=== PATIENT | female | born 1990 | race Caucasian/White ===

== ENCOUNTER 2016-08-22 13:10 | Outpatient (CLI) | payer MEDICAID ==
[~2016-08-22] VITALS: Ht 157.5 cm; Wt 83.8 kg
[2016-08-22 13:51] VITALS: BP 106/60; PULSE 81; RESP 18; Ht 157.5 cm; Wt 83.8 kg
--- NOTE | 2016-08-22 14:42 | RADRPT ---
PROCEDURE: OB ultrasound for biophysical profile CLINICAL INDICATION: Cholestasis TECHNIQUE: Multiple sonographic images of the pelvis were obtained. Transabdominal view of the gr avid uterus are available for review. The images were reviewed on a PACS workstation. COMPARISON: None available FINDINGS: breathing movement = 2/2 tone = 2/2 motion = 2/2 CHANG = 2/2 CHANG = 8.7 cm, consistent with borderline oligohydramnios. Single live intrauterine with cardiac activity. heart rate equals 143 beats p er minute. Presentation is cephalic. The placenta is anterior, grade II. IMPRESSION: 1. Single viable intrauterine gestation. 2. Biophysical profile = 8/8. 3. CHANG = 8.7 cm. RPTAT: KK .Bhaskar Hansen MD, MD Date Time Electronically viewed and signed by .Bhaskar Hansen MD, MD on 08/22/2016 14:42 .B/
[2016-08-22] MEDS ORDERED: LACTATED RINGER'S 1,000 ML IV SCH (14:50)
--- NOTE | 2016-08-22 14:58 | QN ---
Documentation Comment iup 34 weeks cholestatis vss exam wnl us wnl a/p iup 34 weeks cholestatsis dc metter JOLIE WHITE MD Aug 22, 2016 14:58
[2016-08-22] MEDS ORDERED: TERBUTALINE 1 MG/ML INJ SC PRN (15:30)
[2016-08-22 15:34] LABS: ALBUMIN 3.1 g/dl (3.3-4.9); ALBUMIN/GLOBULIN RATIO 0.88; BILIRUBIN,INDIRECT 0.1 mg/dl (0-1.1); BILIRUBIN,TOTAL 0.1 mg/dl (0.2-1.3); CALCIUM 8.9 mg/dl (8.4-10.2); CREATININE 0.54 mg/dl (0.44-1.00); POTASSIUM 3.6 mmol/L (3.5-5.1); TOTAL PROTEIN 6.6 g/dl (6.1-8.1)
[2016-08-22] MEDS ORDERED: FERR325C PO (16:17)
[2016-08-22] MEDS ORDERED: PRENAT PO (16:17)
[2016-08-22] MEDS ORDERED: URSO300C21 PO (16:19)
[2016-08-22 16:21] LABS: ADD SCAN DIFF NO
[2016-08-22 16:25] LABS: BASOPHILS % 0.3 % (0.0-2.0); EOSINOPHILS # 0.1 10^3/ul (0.0-0.5); EOSINOPHILS % 0.9 % (0.0-7.0); HEMATOCRIT 32.3 % (37.0-47.0); HEMOGLOBIN 9.9 g/dl (12.0-16.0); LYMPHOCYTES # 1.3 10^3/ul (0.8-2.9); LYMPHOCYTES % 17.5 % (15.0-51.0); MEAN CORPUSCULAR HEMOGLOBIN 22.1 pg (29.0-33.0); MEAN CORPUSCULAR HGB CONC 30.7 g/dl (32.0-37.0); MEAN CORPUSCULAR VOLUME 72.1 fl (82.0-101.0); MEAN PLATELET VOLUME 11.8 fl (7.4-10.4); MONOCYTE # 0.5 10^3/ul (0.3-0.9); MONOCYTES % 6.9 % (0.0-11.0); NEUTROPHIL # 5.5 10^3/ul (1.6-7.5); NEUTROPHILS % 73.9 % (39.0-77.0); PLATELET COUNT 244 10^3/UL (140-415); RED BLOOD COUNT 4.48 10^6/ul (4.20-5.40); RED CELL DISTRIBUTION WIDTH 20.8 % (11.5-14.5); WHITE BLOOD COUNT 7.5 10^3/ul (4.8-10.8)
--- NOTE | 2016-08-22 18:04 | TRIAGE ---
OB Triage Datetime Report Generated by CPN: 08/22/2016 18:03 Datetime: 08/22/2016 17:08 Assessment Type: Triage Maternal Assessment Level of Consciousness: Fully Conscious DTR's/Clonus: DTRs 2+; No Clonus Headache: Denies Blurred Vision: No Respiratory Effort: Unlabored; Regular Rhythm; Equal Expansion Breath Sounds, Left: Clear and Equal Breath Sounds, Right: Clear and Equal Nausea/Vomiting: Denies RUQ Epigastric Pain: Denies Facial Edema: None Fall Risk Assessment History of Falling: (0) No Secondary Diagnosis: (0) No Ambulatory Aid: (0) Bedrest/Nurse Assist IV Therapy: (0) No Gait: (0) Normal/Bedrest/Immobile Mental Status: (0) Oriented to Own Ability Fall Score: 0 Fall Risk Score Definition: No Risk: No action required Datetime: 08/22/2016 16:08 Labor Evaluation Frequency: 0 Monitor Mode: External Duration (sec)2399: 0 Contraction Comments: PT DENIES UC'S AT THIS TIME Heart Rate FHR Baseline Rate: 145 Monitor Mode: External US Variability: Moderate 6-25 bpm Accelerations: 15X15 Decelerations: None Category: Category I Pain Assessment Pain Scale: 0 Pain Presence: Intermittent Pain Type: Contraction Pain Location: Abdomen; Back Pain Goal: 0 Pain Relief Measures: Comfort Measures Pain Assessment Comments: PT REPORTS NO PAIN AND FEELING BETTER Datetime: 08/22/2016 15:30 Labor Evaluation Frequency: IRREG Monitor Mode: External Duration (sec)2399: 50-90 Quality: Mild Pattern: Normal: <= 5 Contractions in 10 Minutes Resting Tone [place]: Relaxed Heart Rate FHR Baseline Rate: 145 Monitor Mode: External US Variability: Moderate 6-25 bpm Accelerations: 15X15 Decelerations: Variable Category: Category II Comments: ISOLATED VARIABLE NOTED AT THIS TIME , PT SAT UP Datetime: 08/22/2016 15:01 Labor Evaluation Frequency: IRREG Monitor Mode: External Duration (sec)2399: 50-80 Quality: Mild Pattern: Normal: <= 5 Contractions in 10 Minutes Resting Tone [place]: Relaxed Heart Rate FHR Baseline Rate: 145 Monitor Mode: External US Variability: Moderate 6-25 bpm Accelerations: 15X15 Decelerations: None Category: Category I Comments: NST REACTIVE FOR GESTATIONAL AGE Datetime: 08/22/2016 14:17 Labor Evaluation Frequency: 0 Monitor Mode: External Duration (sec)2399: 0 Contraction Comments: no uc's noted pt denies uc's at this time Heart Rate FHR Baseline Rate: 135 Monitor Mode: External US Variability: Moderate 6-25 bpm Accelerations: 15X15 Decelerations: None Category: Category I Datetime: 08/22/2016 14:00 Time of Arrival: 08/22/2016 12:54 EGA: 34.1 Arrived By: Ambulatory Arrived From: Home Chief Complaint: f/u for cholestatsis Movement: Present Contractions: Denies/Absent Rupture of Membranes: Denies Vaginal Bleeding: None Vaginal Discharge: Denies Recent Sexual Intercouse: Denies Abdominal Trauma: Not Applicable Patient Complaints: None Time Provider Notified: 08/22/2016 14:55 Provider Notified: SHAMSIAN Initial Plan: bpp and nst Datetime: 08/22/2016 13:30 Stage of : Recovery Maternal Assessment Level of Consciousness: Fully Conscious DTR's/Clonus: DTRs 2+; No Clonus Headache: Denies Blurred Vision: No Respiratory Effort: Unlabored; Regular Rhythm; Equal Expansion Breath Sounds, Left: Clear and Equal Breath Sounds, Right: Clear and Equal Nausea/Vomiting: Denies RUQ Epigastric Pain: Denies Lower Extremities Edema: None Degree: None Upper Extremities Edema: None Degree: None Facial Edema: None Temperature Route: Axillary Fall Risk Assessment History of Falling: (0) No Secondary Diagnosis: (0) No Ambulatory Aid: (0) Bedrest/Nurse Assist IV Therapy: (0) No Gait: (0) Normal/Bedrest/Immobile Mental Status: (0) Oriented to Own Ability Fall Score: 0 Fall Risk Score Definition: No Risk: No action required
== END 2016-08-22 16:26 | disposition home or self-care (01) ==
LOC: OBT 13:10 → EDBD 13:10 → L-D 13:10 → OBT 16:26
PROVIDERS: ATTEND Obstetrics & Gynecology
DX: O26.613 Liver and biliary tract disorders in pregnancy, third trimester (principal); K83.1 Obstruction of bile duct; Z3A.34 34 weeks gestation of pregnancy
CPT/HCPCS: 36415; 76818; 80053; 85025; 96360; 96372; J3105; Z7500; G0463

== ENCOUNTER 2016-08-24 09:35 | Outpatient (CLI) | payer MEDICAID ==
[~2016-08-24] VITALS: Ht 165.1 cm; Wt 84.4 kg
[~2016-08-24 09:35] MED LIST: FERR325C PO; PRENAT PO; URSO300C21 PO
[2016-08-24 10:25] VITALS: Ht 165.1 cm; Wt 84.4 kg
[2016-08-24 10:26] VITALS: BP 105/65; PULSE 87; RESP 18
--- NOTE | 2016-08-24 10:56 | RADRPT ---
PROCEDURE: OB ultrasound for biophysical profile CLINICAL INDICATION: Cholestasis. TECHNIQUE: Multiple sonographic images of the pelvis were obtained. Transabdominal view of the gr avid uterus are available for review. The images were reviewed on a PACS workstation. COMPARISON: 08/22/2016 FINDINGS: breathing movement = 2/2 tone = 2/2 motion = 2/2 Quantitative amniotic fluid volume = 2/2 CHANG = 13.4 cm Single live intrauterine with cardiac activity at 130 8 beats per minute. There is a anterior placenta without previa. IMPRESSION: 1. Single living intrauterine gestation in cephalic position. 2. Biophysical profile = 09/13. 3. CHANG = 13.4 cm. RPTAT: AACC Physician Reji Date Time Electronically viewed and signed by Physician Reji on 08/24/2016 10:55 /
--- NOTE | 2016-08-24 12:17 | PN ---
Triage Information Date/Time August 24, 2016 Weeks of Gestation 34 weeks and 3 days : 3 Para: 1 Diabetes: none Additional information 26-year-old with IUP at 34 weeks and 3 days with history of 1 and cholecystokinin current . she has had care with [facility]. She was a started on ursodiol 300 mg p.o. 3 times daily. She is here today for NST and/BPP. Denies any vaginal bleeding, uterine contractions or decreased movement. Reports to still moderate body itching. Takes Benadryl as needed. She is also taking ursodiol regularly [address] [facility] reviewed. Reported bile acids as well as LFTs were elevated.Per patient she was plan to see perinatologist with the planning for delivery time. Objective Vital Signs Date Time Temp Pulse Resp B/P Pulse Ox O2 Delivery O2 Flow Rate FiO2 08/24/16 10:26 98.4 87 18 105/65 98 Room Air Heart Rate: 120's Contractions: None Exam General appearance: Alert and oriented 4. Patient does not appear to be in any acute distress. Abdomen: Soft, gravid, nontender, fundal height consistent with gestational age. NST: Category 1 BPP: 8/8 ROCEDURE: OB ultrasound for biophysical profile CLINICAL INDICATION: Cholestasis. TECHNIQUE: Multiple sonographic images of the pelvis were obtained. Transabdominal view of the gravid uterus are available for review. The images were reviewed on a PACS workstation. COMPARISON: 08/22/2016 FINDINGS: breathing movement = 2/2 tone = 2/2 motion = 2/2 Quantitative amniotic fluid volume = 2/2 CHANG = 13.4 cm Single live intrauterine with cardiac activity at 130 8 beats per minute. There is a anterior placenta without previa. IMPRESSION: 1. Single living intrauterine gestation in cephalic position. 2. Biophysical profile = 8. 3. CHANG = 13.4 cm. Results/Medications Medications Current Medications Betamethasone Acet/Betameth SodPhos (Celestone Soluspan) 12 mg ONCE ONCE IM ; Start 08/24/16 at 12:30; Stop 08/24/16 at 12:31 Assessment/Plan IUP at 34 weeks and 3 days History of cholestasis of based on clinical picture and elevated bile acids and LFTs, para records from notes from [facility] NST: Category 1 BPP: 09/13 Discussed with the patient regarding steroid due to likely delivery prior to 37 weeks Received first dose of steroid today Return to clinic tomorrow for the second shot of steroid after 24 hours as well as anesthesia Will have LFT drawn tomorrow, to compare for trend Advised the patient to discuss with her OB attending tomorrow at her visit about appointment to see perinatologist for timing of delivery kiln remover used. Patient verbalized understanding all above discussion Strict labor precaution and kick count discussed Continue ursodiol 3 times daily Continue Benadryl as needed TAYE CADET MD Aug 24, 2016 12:17
--- NOTE | 2016-08-24 12:18 | TRIAGE ---
OB Triage Datetime Report Generated by CPN: 08/24/2016 12:18 Datetime: 08/24/2016 10:21 Assessment Type: Triage Maternal Assessment Level of Consciousness: Fully Conscious DTR's/Clonus: DTRs 2+; No Clonus Headache: Denies Blurred Vision: No Respiratory Effort: Unlabored; Regular Rhythm; Equal Expansion Breath Sounds, Left: Clear and Equal Breath Sounds, Right: Clear and Equal Nausea/Vomiting: Denies RUQ Epigastric Pain: Denies Lower Extremities Edema: None Degree: None Upper Extremities Edema: None Degree: None Facial Edema: None Fall Risk Assessment History of Falling: (0) No Secondary Diagnosis: (0) No Ambulatory Aid: (0) Bedrest/Nurse Assist IV Therapy: (0) No Gait: (0) Normal/Bedrest/Immobile Mental Status: (0) Oriented to Own Ability Fall Score: 0 Fall Risk Score Definition: No Risk: No action required Datetime: 08/24/2016 10:19 Time of Arrival: 08/24/2016 09:30 EGA: 34.3 Arrived By: Ambulatory Arrived From: Home Chief Complaint: pt here for NST/BPP FOR CHOLESTASIS Movement: Present Contractions: Denies/Absent Rupture of Membranes: Denies Vaginal Discharge: Denies Recent Sexual Intercouse: Denies Abdominal Trauma: Not Applicable Patient Complaints: None Time Provider Notified: 08/24/2016 09:30 Provider Notified: HAMZAH Initial Plan: NST/BPP/BETAMETHASONE Datetime: 08/24/2016 09:58 Labor Evaluation Monitor Mode: External Heart Rate Monitor Mode: External US Datetime: 08/22/2016 17:08 Fall Score: 0 Fall Risk Score Definition: No Risk: No action required Datetime: 08/22/2016 14:00 EGA: 34.1 Datetime: 08/22/2016 13:30 Fall Score: 0 Fall Risk Score Definition: No Risk: No action required
[2016-08-24] MEDS ORDERED: BETAMET NA PHOS/AC(6 MG/ML) 5ML INJ IM ONE (12:30)
== END 2016-08-24 12:25 | disposition home or self-care (01) ==
LOC: L-D 09:35 → OBT 09:35 → L-D 09:37 → OBT 12:25
PROVIDERS: ATTEND Obstetrics & Gynecology
DX: O26.613 Liver and biliary tract disorders in pregnancy, third trimester (principal); K83.1 Obstruction of bile duct; O34.219 Maternal care for unspecified type scar from previous cesarean delivery; Z3A.34 34 weeks gestation of pregnancy; O26.893 Other specified pregnancy related conditions, third trimester; L29.9 Pruritus, unspecified
CPT/HCPCS: 76818; J0702; Z7500; G0463

== ENCOUNTER 2016-08-25 12:11 | Outpatient (CLI) | payer MEDICAID ==
[~2016-08-25] VITALS: Ht 165.1 cm; Wt 84.7 kg
[2016-08-25 12:34] VITALS: Ht 165.1 cm; Wt 84.7 kg
[2016-08-25 12:35] VITALS: BP 103/55; PULSE 87; RESP 18
[2016-08-25] MEDS ORDERED: BETAMET NA PHOS/AC(6 MG/ML) 5ML INJ IM SCH (13:00)
[2016-08-25 13:28] LABS: ADD SCAN DIFF NO
[2016-08-25 13:34] LABS: BASOPHILS % 0.1 % (0.0-2.0); EOSINOPHILS % 0.4 % (0.0-7.0); HEMATOCRIT 29.9 % (37.0-47.0); HEMOGLOBIN 9.3 g/dl (12.0-16.0); LYMPHOCYTES # 1.3 10^3/ul (0.8-2.9); MEAN CORPUSCULAR HEMOGLOBIN 22.2 pg (29.0-33.0); MEAN CORPUSCULAR HGB CONC 31.1 g/dl (32.0-37.0); MEAN CORPUSCULAR VOLUME 71.5 fl (82.0-101.0); MEAN PLATELET VOLUME 10.8 fl (7.4-10.4); MONOCYTE # 0.9 10^3/ul (0.3-0.9); MONOCYTES % 8.2 % (0.0-11.0); NEUTROPHIL # 9.1 10^3/ul (1.6-7.5); NEUTROPHILS % 79.7 % (39.0-77.0); PLATELET COUNT 254 10^3/UL (140-415); RED BLOOD COUNT 4.18 10^6/ul (4.20-5.40); RED CELL DISTRIBUTION WIDTH 20.8 % (11.5-14.5); WHITE BLOOD COUNT 11.4 10^3/ul (4.8-10.8)
[2016-08-25 13:47] LABS: INR 0.94; PROTIME 12.6 Sec (12.2-14.2)
[2016-08-25 13:48] LABS: PARTIAL THROMBOPLASTIN TIME 27.4 Sec (25.0-35.0)
[2016-08-25 13:51] LABS: ALBUMIN 3.2 g/dl (3.3-4.9); ALBUMIN/GLOBULIN RATIO 0.88; BILIRUBIN,INDIRECT 0.1 mg/dl (0-1.1); BILIRUBIN,TOTAL 0.1 mg/dl (0.2-1.3); CALCIUM 8.8 mg/dl (8.4-10.2); CREATININE 0.5 mg/dl (0.44-1.00); POTASSIUM 3.2 mmol/L (3.5-5.1); TOTAL PROTEIN 6.8 g/dl (6.1-8.1); URIC ACID 3.4 mg/dl (3.1-7.9)
[2016-08-25 14:03] LABS: ADD UMIC YES; UR ASCORBIC ACID NEGATIVE (NEGATIVE); UR BACTERIA FEW /HPF (NONE SEEN); UR BILIRUBIN (Dip) NEGATIVE (NEGATIVE); UR BLOOD (Dip) NEGATIVE (NEGATIVE); UR CLARITY SLIGHTLY CLOUDY (CLEAR); UR COLOR YELLOW (YELLOW); UR GLUCOSE (Dip) 2+ mg/dL (NEGATIVE); UR KETONES (Dip) NEGATIVE (NEGATIVE); UR LEUKOCYTE ESTERASE (Dip) TRACE Leu/ul (NEGATIVE); UR MUCUS FEW /HPF (NONE SEEN); UR NITRITE (Dip) NEGATIVE (NEGATIVE); UR NONSQUAMOUS EPITHELIAL CELL 3 /HPF (NONE SEEN); UR RBC 1 /HPF (0-5); UR SPECIFIC GRAVITY (Dip) 1.023 (1.003-1.030); UR SQUAMOUS EPITHELIAL CELL MANY /HPF (FEW); UR TOTAL PROTEIN (Dip) 1+ mg/dl (NEGATIVE); UR UROBILINOGEN (Dip) 1+ mg/dL (NEGATIVE)
--- NOTE | 2016-08-25 14:20 | TRIAGE ---
OB Triage Datetime Report Generated by CPN: 08/25/2016 14:19 Datetime: 08/25/2016 13:56 Stage of : OB Triage Datetime: 08/25/2016 13:02 Frequency: occ Quality: Mild Pattern: Normal: <= 5 Contractions in 10 Minutes Resting Tone [place]: Relaxed FHR Baseline Rate: 130 Monitor Mode: External US FHR Baseline Changes: No Baseline Change Variability: Moderate 6-25 bpm Accelerations: 15X15 Decelerations: None Category: Category I Datetime: 08/25/2016 13:00 Comments: NST reactive, active movements noted Datetime: 08/25/2016 12:43 Stage of : OB Triage Level of Consciousness: Fully Conscious DTR's/Clonus: DTRs 2+; No Clonus Headache: Denies Blurred Vision: No Respiratory Effort: Unlabored; Regular Rhythm; Equal Expansion Breath Sounds, Left: Clear and Equal Breath Sounds, Right: Clear and Equal Nausea/Vomiting: Denies RUQ Epigastric Pain: Denies Lower Extremities Edema: None Degree: None Upper Extremities Edema: None Degree: None Facial Edema: None Temperature Route: Axillary History of Falling: (0) No Secondary Diagnosis: (0) No Ambulatory Aid: (0) Bedrest/Nurse Assist IV Therapy: (0) No Gait: (0) Normal/Bedrest/Immobile Mental Status: (0) Oriented to Own Ability Fall Score: 0 Fall Risk Score Definition: No Risk: No action required Frequency: pt denies feeling contractions Monitor Mode: External FHR Baseline Rate: 130 Monitor Mode: External US Pain Scale: 0 Pain Presence: None/Denies Pain Type: N/A Datetime: 08/25/2016 12:41 Time of Arrival: 08/25/2016 12:41 EGA: 34.4 Arrived By: Ambulatory Arrived From: Home Chief Complaint: come in for 2nd dose of betamethasone shot and repeat of blood work Movement: Present Contractions: Occasional Rupture of Membranes: Denies Vaginal Bleeding: None Vaginal Discharge: Denies Recent Sexual Intercouse: Denies Abdominal Trauma: Not Applicable Patient Complaints: None Time Provider Notified: 08/25/2016 12:30 Provider Notified: Dr burgess Initial Plan: efm/ im shot/ lab draw Datetime: 08/24/2016 11:30 Stage of : OB Triage Level of Consciousness: Fully Conscious Frequency: NONE Monitor Mode: External Resting Tone [place]: Relaxed FHR Baseline Rate: 135 Monitor Mode: External US Variability: Moderate 6-25 bpm Accelerations: 15X15 Decelerations: None Category: Category I Pain Scale: 0 Pain Goal: 3 Membrane Status: Intact Vaginal Bleeding: None Datetime: 08/24/2016 10:21 Fall Score: 0 Fall Risk Score Definition: No Risk: No action required Datetime: 08/24/2016 10:19 EGA: 34.3
--- NOTE | 2016-08-25 15:34 | CONS ---
Date/Time of Note Date/Time of Note DATE: 08/25/16 TIME: 15:28 Consultation Date/Type/Reason Admit Date/Time August 25, 2016 OB triage consult Reason for Consultation This patient is a 26 years old 3 para 1 1 with estimated date of confinement of September 12, 2016 which makes her 34 weeks and 4 days. she developed cholestasis of the and was placed on Actigall 300 mg 3 times a day she had a betamethasone injection 24 hours ago and will have another one today in anticipation of early delivery On examination she is a well-developed well-nourished woman . near term . her general vital signs are basically normal with blood pressure of 103/55, and pulse rate of 87, temperature 97.5. Laboratory Tests Test 08/25/16 13:02 08/25/16 13:10 White Blood Count 11.410^3/ul Red Blood Count 4.1810^6/ul Hemoglobin 9.3g/dl Hematocrit 29.9% Mean Corpuscular Volume 71.5fl Mean Corpuscular Hemoglobin 22.2pg Mean Corpuscular Hemoglobin Concent 31.1g/dl Red Cell Distribution Width 20.8% Platelet Count 68491^3/UL Mean Platelet Volume 10.8fl Neutrophils % 79.7% Lymphocytes % 11.0% Monocytes % 8.2% Eosinophils % 0.4% Basophils % 0.1% Neutrophils # 9.110^3/ul Lymphocytes # 1.310^3/ul Monocytes # 0.910^3/ul Eosinophils # 0.010^3/ul Basophils # 0.010^3/ul Nucleated Red Blood Cells # 0.010^3/ul Prothrombin Time 12.6Sec Prothrombin Time Ratio 1.0 INR International Normalized Ratio 0.94 Activated Partial Thromboplast Time 27.4Sec Fibrinogen 616.0mg/dl Sodium Level 140mmol/L Potassium Level 3.2mmol/L Chloride Level 104mmol/L Carbon Dioxide Level 22mmol/L Anion Gap 17 Blood Urea Nitrogen 6mg/dl Creatinine 0.50mg/dl Glucose Level 94mg/dl Uric Acid 3.4mg/dl Calcium Level 8.8mg/dl Total Bilirubin 0.1mg/dl Direct Bilirubin 0.00mg/dl Indirect Bilirubin 0.1mg/dl Aspartate Amino Transf (AST/SGOT) 48IU/L Alanine Aminotransferase (ALT/SGPT) 83IU/L Alkaline Phosphatase 202IU/L Total Protein 6.8g/dl Albumin 3.2g/dl Globulin 3.60g/dl Albumin/Globulin Ratio 0.88 Urine Color YELLOW Urine Clarity SLIGHTLY CLOUDY Urine pH 6.0 Urine Specific [place] 1.023 Urine Ketones NEGATIVEmg/dL Urine Nitrite NEGATIVEmg/dL Urine Bilirubin NEGATIVEmg/dL Urine Urobilinogen 1+mg/dL Urine Leukocyte Esterase TRACELeu/ul Urine Microscopic RBC 1/HPF Urine Microscopic WBC 7/HPF Urine Squamous Epithelial Cells MANY/HPF Urine Bacteria FEW/HPF Urine Mucus FEW/HPF Urine Hemoglobin NEGATIVEmg/dL Urine Glucose 2+mg/dL Urine Total Protein 1+mg/dl Current Medications Medications (Trade) Dose Ordered Sig/Ron Route PRN Reason Start Time Stop Time Status Last Admin Dose Admin Betamethasone Acet/Betameth SodPhos (Celestone Soluspan) 12 mg Q24H IM 08/25/16 13:00 08/25/16 13:01 DC 08/25/16 13:10 12 MG Constitutional: No chills, No diaphoresis, No disoriented, No febrile, No improved, No no complaints, No other, No poor po, No requiring IVF, No requiring O2 Eyes: No discharge, No no complaints, No other, No pain, No redness, No visual change ENT: No bleeding, No congestion, No discharge, No dysphagia, No no complaints, No other, No pain, No sore throat Respiratory: No cough, No no complaints, No other, No pain, No pleuritic pain, No shortness of breath, No sputum, No wheezing Cardiovascular: No chest pain, No edema, No lightheadedness, No no complaints, No orthopenea, No other, No palpitations, No paroxysmal nocturnal dyspnea Gastrointestinal: No blood, No constipation, No decreased appetite, No diarrhea , No flatus, No nausea, No no complaints, No other, No pain, No passing stool, No vomiting Genitourinary: other (Pelvic examination was performed due to the fact that she did not have any contractions), No bleeding, No discharge, No dysuria, No flank pain, No hematuria, No no complaints Musculoskeletal: No back pain, No bone/joint pain, No neck pain, No no complaints, No other, No restricted range of motion, No swelling Skin: No bruising, No erythema, No laceration, No no complaints, No other, No pruritis, No rash, No skin lesions Neurologic: No confusion, No dizziness, No focal-weakness, No headache, No no complaints, No other, No seizure, No syncope Endocrine: other (Her knee-jerk reflex was normal), No dry skin, No no complaints, No polydypsia, No polyuria, No temp intolerance Additional Comments Laboratory studies except for anemia hemoglobin of 9.3 hematocrit of 29.9 her CBC was normal platelet was 254,000. Her PIH lab was basically normal. 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 and she will be delivered by section soon Social History Smoking Status: Never smoker Exam/Review of Systems Vital Signs Vitals Vital Signs Date Time Temp Pulse Resp B/P Pulse Ox O2 Delivery O2 Flow Rate FiO2 08/25/16 12:35 97.5 87 18 103/55 Room Air Results Result Diagram: 08/25/16 1302 08/25/16 1302 Results 24 hrs Laboratory Tests Test 08/25/16 13:02 08/25/16 13:10 White Blood Count 11.4 #H Red Blood Count 4.18 L Hemoglobin 9.3 L Hematocrit 29.9 L Mean Corpuscular Volume 71.5 L Mean Corpuscular Hemoglobin 22.2 L Mean Corpuscular Hemoglobin Concent 31.1 L Red Cell Distribution Width 20.8 H Platelet Count 254 Mean Platelet Volume 10.8 H Neutrophils % 79.7 H Lymphocytes % 11.0 L Monocytes % 8.2 Eosinophils % 0.4 Basophils % 0.1 Neutrophils # 9.1 H Lymphocytes # 1.3 Monocytes # 0.9 Eosinophils # 0.0 Basophils # 0.0 Nucleated Red Blood Cells # 0.0 Prothrombin Time 12.6 Prothrombin Time Ratio 1.0 INR International Normalized Ratio 0.94 Activated Partial Thromboplast Time 27.4 Fibrinogen 616.0 H Sodium Level 140 Potassium Level 3.2 L Chloride Level 104 Carbon Dioxide Level 22 Anion Gap 17 H Blood Urea Nitrogen 6 L Creatinine 0.50 Glucose Level 94 Uric Acid 3.4 Calcium Level 8.8 Total Bilirubin 0.1 L Direct Bilirubin 0.00 Indirect Bilirubin 0.1 Aspartate Amino Transf (AST/SGOT) 48 H Alanine Aminotransferase (ALT/SGPT) 83 H Alkaline Phosphatase 202 H Total Protein 6.8 Albumin 3.2 L Globulin 3.60 H Albumin/Globulin Ratio 0.88 Urine Color YELLOW Urine Clarity SLIGHTLY CLOUDY A Urine pH 6.0 Urine Specific [place] 1.023 Urine Ketones NEGATIVE Urine Nitrite NEGATIVE Urine Bilirubin NEGATIVE Urine Urobilinogen 1+ H Urine Leukocyte Esterase TRACE A Urine Microscopic RBC 1 Urine Microscopic WBC 7 H Urine Squamous Epithelial Cells MANY A Urine Bacteria FEW A Urine Mucus FEW A Urine Hemoglobin NEGATIVE Urine Glucose 2+ H Urine Total Protein 1+ H SHARYN HURT MD Aug 25, 2016 15:34
== END 2016-08-25 14:16 | disposition home or self-care (01) ==
LOC: OBT 12:11 → L-D 12:12 → OBT 14:16
PROVIDERS: ATTEND Obstetrics & Gynecology
DX: O26.613 Liver and biliary tract disorders in pregnancy, third trimester (principal); K83.1 Obstruction of bile duct; Z3A.34 34 weeks gestation of pregnancy
CPT/HCPCS: 36415; 80053; 81001; 84560; 85025; 85384; 85610; 85730; J0702; Z7500; G0463

== ENCOUNTER 2016-08-28 10:39 | Outpatient (CLI) | payer MEDICAID ==
[~2016-08-28] VITALS: Ht 165.1 cm; Wt 84.6 kg
[2016-08-28 10:50] VITALS: BP 96/52; PULSE 80; RESP 18
--- NOTE | 2016-08-28 11:28 | RADRPT ---
PROCEDURE: US biophysical profile. CLINICAL INDICATION: Cholestasis. TECHNIQUE: Multiple sonographic images of the uterus were obtained. The images were revi ewed on a PACS workstation. COMPARISON: No prior studies are available for comparison. FINDINGS: There is a single live intrauterine gestation. heart rate is 148 beats per minute. The position is cephalic. The placenta is anterior grade 1 with no abruption or previa. The CHANG is 7.7 cm. (Normal = 5-20 cm.) Breathing Movement: 2 Gross Body Movement: 2 Tone: 2 Qualitative Amniotic Fluid Volume: 2 TOTAL: 8 IMPRESSION: 1. The biophysical score is 8/8. RPTAT: QQ .Abdi Owens MD, MD Date Time Electronically viewed and signed by .Abdi Owens MD, on 08/28/2016 11:28 .R/
[2016-08-28] MEDS ORDERED: LACTATED RINGER'S 1,000 ML IV ONE (12:00)
--- NOTE | 2016-08-28 14:03 | RADRPT ---
PROCEDURE: OB ultrasound CLINICAL INDICATION: . OB ultrasound with fluid volume assessment. TECHNIQUE: OB ultrasound with fluid volume assessment. Transabdominal imaging of the gravid uteru s was performed. COMPARISON: 08/28/2016 FINDINGS: The amniotic fluid index equals approximately 9.6 cm. IMPRESSION: Amniotic fluid index equals 9.6 cm. Previously 7.7 cm RPTAT: AADD .Rex Patel MD, MD Date Time Electronically viewed and signed by .Rex Patel MD, MD on 08/28/2016 14:03 .B/
--- NOTE | 2016-08-28 18:20 | TRIAGE ---
OB Triage Datetime Report Generated by CPN: 08/28/2016 18:19 Datetime: 08/28/2016 14:55 Labor Evaluation Frequency: x2 Monitor Mode: External Duration (sec)2399: 50-60 Quality: Mild Pattern: Normal: <= 5 Contractions in 10 Minutes Resting Tone [place]: Relaxed Heart Rate FHR Baseline Rate: 145 Monitor Mode: External US FHR Baseline Changes: No Baseline Change Variability: Moderate 6-25 bpm Accelerations: 15X15 Decelerations: None Datetime: 08/28/2016 14:00 Labor Evaluation Frequency: x1 Monitor Mode: External Duration (sec)2399: 80 Quality: Mild Pattern: Normal: <= 5 Contractions in 10 Minutes Resting Tone [place]: Relaxed Contraction Comments: PT REPORTS NOT FEELING CTX Monitor Mode: External US FHR Baseline Changes: No Baseline Change Variability: Moderate 6-25 bpm Accelerations: 15X15 Decelerations: Variable Comments: Vx1 Datetime: 08/28/2016 13:49 Monitor Mode: External Datetime: 08/28/2016 13:33 Monitor Mode: External Datetime: 08/28/2016 13:00 Labor Evaluation Frequency: x3 Monitor Mode: External Duration (sec)2399: 50-60 Quality: Mild Pattern: Normal: <= 5 Contractions in 10 Minutes Resting Tone [place]: Relaxed Heart Rate FHR Baseline Rate: 135 Monitor Mode: External US FHR Baseline Changes: No Baseline Change Variability: Moderate 6-25 bpm Accelerations: 15X15 Decelerations: None Category: Category I Datetime: 08/28/2016 12:00 Labor Evaluation Frequency: x2 Monitor Mode: External Duration (sec)2399: 60 Quality: Mild Pattern: Normal: <= 5 Contractions in 10 Minutes Resting Tone [place]: Relaxed Heart Rate FHR Baseline Rate: 135 Monitor Mode: External US FHR Baseline Changes: No Baseline Change Variability: Moderate 6-25 bpm Accelerations: 15X15 Decelerations: None Category: Category I Datetime: 08/28/2016 11:00 Labor Evaluation Frequency: 6-8 Monitor Mode: External Duration (sec)2399: 60 Quality: Mild Pattern: Normal: <= 5 Contractions in 10 Minutes Resting Tone [place]: Relaxed Heart Rate FHR Baseline Rate: 145 Monitor Mode: External US FHR Baseline Changes: No Baseline Change Variability: Moderate 6-25 bpm Accelerations: 15X15 Decelerations: Late Comments: Lx2 Datetime: 08/28/2016 10:53 Time of Arrival: 08/28/2016 10:25 EGA: 35.0 Arrived By: Ambulatory Arrived From: Home Chief Complaint: PT RETURNED WITH ORDERS FROM 08/25/16 FOR A REPEAT NST/BPP Movement: Present Contractions: Occasional Rupture of Membranes: Denies Vaginal Bleeding: None Vaginal Discharge: Denies Abdominal Trauma: Not Applicable Patient Complaints: None Additional Patient Complaints: CHOLESTASIS Time Provider Notified: 08/28/2016 11:19 Provider Notified: DR. WHITE Initial Plan: EFM x2, BPP Datetime: 08/28/2016 10:44 Stage of : OB Triage Assessment Type: Triage Maternal Assessment Level of Consciousness: Fully Conscious Headache: Denies Blurred Vision: No Respiratory Effort: Unlabored; Regular Rhythm; Equal Expansion Breath Sounds, Left: Clear and Equal Breath Sounds, Right: Clear and Equal Nausea/Vomiting: Denies RUQ Epigastric Pain: Denies Lower Extremities Edema: None Degree: None Upper Extremities Edema: None Degree: None Facial Edema: None Temperature Route: Oral Fall Risk Assessment History of Falling: (0) No Secondary Diagnosis: (0) No Ambulatory Aid: (0) Bedrest/Nurse Assist IV Therapy: (0) No Gait: (0) Normal/Bedrest/Immobile Mental Status: (0) Oriented to Own Ability Fall Score: 0 Fall Risk Score Definition: No Risk: No action required Pain Assessment Pain Scale: 4 Pain Presence: Intermittent Pain Type: Cramping; Contraction Pain Location: Abdomen Datetime: 08/25/2016 12:43 Fall Score: 0 Fall Risk Score Definition: No Risk: No action required Datetime: 08/25/2016 12:41 EGA: 34.4 Datetime: 08/24/2016 10:21 Fall Score: 0 Fall Risk Score Definition: No Risk: No action required Datetime: 08/24/2016 10:19 EGA: 34.3 Datetime: 08/22/2016 17:08 Fall Score: 0 Fall Risk Score Definition: No Risk: No action required Datetime: 08/22/2016 14:00 EGA: 34.1 Datetime: 08/22/2016 13:30 Fall Score: 0 Fall Risk Score Definition: No Risk: No action required
== END 2016-08-28 15:10 | disposition home or self-care (01) ==
LOC: OBT 10:39 → L-D 10:41 → OBT 15:10
PROVIDERS: ATTEND Obstetrics & Gynecology
DX: O26.613 Liver and biliary tract disorders in pregnancy, third trimester (principal); Z3A.37 37 weeks gestation of pregnancy
CPT/HCPCS: 36415; 76816; 76818; 96360; J7120; Z7500; G0463

== ENCOUNTER 2016-08-30 09:17 | Outpatient (CLI) | payer MEDICAID ==
[~2016-08-30] VITALS: Ht 165.1 cm; Wt 84.8 kg
[2016-08-30 09:39] VITALS: Ht 165.1 cm; Wt 84.8 kg
[2016-08-30 09:40] VITALS: BP 105/64; PULSE 93
--- NOTE | 2016-08-30 11:25 | RADRPT ---
PROCEDURE: US OB biophysical profile. CLINICAL INDICATION: evaluation, cholestasis TECHNIQUE: Multiple sonographic images of the pelvis were obtained. The images were reviewed on a PACS workstation. COMPARISON: Obstetrical ultrasound from 08/28/2016 FINDINGS: There is a single viable intrauterine gestation. Cardiac activity is present with 136 beats per min josie. There is a vertex presentation. The placenta is anterior. There is no evidence of placental abruption. There is low - normal amount of amniotic fluid with an CHANG = 8.8 cm. Biophysical profile: movement 2/2 tone 2/2. breathing 2/2 CHANG 2/2 Total 09/13 RPTAT: AA . IMPRESSION: Normal biophysical profile. Low - normal CHANG of 8.8 cm, compared with an CHANG of 7.7 cm previously. Physician Marysol Date Time Electronically viewed and signed by Physician Marysol on 08/30/2016 11:24 /
--- NOTE | 2016-08-30 12:46 | CONS ---
Date/Time of Note Date/Time of Note DATE: 08/30/16 TIME: 12:35 Consultation Date/Type/Reason Admit Date/Time August 30, 2016 OB triage consult Reason for Consultation This patient is a 26 years old 3 para 1 1 whose last delivery was spontaneous vaginal delivery. She developed cholestasis of during this and currently on ursodiol 300 mg 3 times daily. She came to the OB triage for evaluation and monitoring. On examination she is a well-developed well-nourished around 35 and half weeks. Her ear nose throat appears to be normal neck is normal. There is a slight erythema of the palm of her hands and sole of her feet. Not much sign of irritation or pruritus on her abdomen and chest. Abdomen is soft occasional contraction. heart tone is normal, the tracing shows is reactive with occasional acceleration no deceleration and good variability. Constitutional: No chills, No diaphoresis, No disoriented, No febrile, No improved, No no complaints, No other, No poor po, No requiring IVF, No requiring O2 ENT: No bleeding, No congestion, No discharge, No dysphagia, No no complaints, No other, No pain, No sore throat Respiratory: No cough, No no complaints, No other, No pain, No pleuritic pain, No shortness of breath, No sputum, No wheezing Cardiovascular: No chest pain, No edema, No lightheadedness, No no complaints, No orthopenea, No other, No palpitations, No paroxysmal nocturnal dyspnea Gastrointestinal: No blood, No constipation, No decreased appetite, No diarrhea , No flatus, No nausea, No no complaints, No other, No pain, No passing stool, No vomiting Genitourinary: other (Pelvic examination was not performed because she is not having any contraction), No bleeding, No discharge, No dysuria, No flank pain, No hematuria, No no complaints Musculoskeletal: No back pain, No bone/joint pain, No neck pain, No no complaints, No other, No restricted range of motion, No swelling Skin: No bruising, No erythema, No laceration, No no complaints, No other, No pruritis, No rash, No skin lesions Neurologic: other (Knee-jerk reflexes normal), No confusion, No dizziness, No focal-weakness, No headache, No no complaints , No seizure, No syncope Endocrine: No dry skin, No no complaints, No other, No polydypsia, No polyuria , No temp intolerance Lymphatic: No adenopathy, No lymphadema, No no complaints, No other, No tender nodes Additional Comments On ultrasound study the report is a single viable intrauterine gestation with cardiac activity of 136 bpm. Fetus in vertex presentation, placenta is anterior with no evidence of abruptio ,. Amniotic fluid index is 8.8 cm. . Biophysical profile is also 8/8. Disposition with these positive finding patient will be discharged home to be followed next week for further monitoring End of dictation Social History Smoking Status: Never smoker Exam/Review of Systems Vital Signs Vitals Vital Signs Date Time Temp Pulse Resp B/P Pulse Ox O2 Delivery O2 Flow Rate FiO2 08/30/16 09:40 97.8 93 105/64 SHARYN HURT MD Aug 30, 2016 12:45
== END 2016-08-30 12:27 | disposition home or self-care (01) ==
LOC: L-D 09:17 → OBT 09:17
PROVIDERS: ATTEND Obstetrics & Gynecology
DX: O26.613 Liver and biliary tract disorders in pregnancy, third trimester (principal); Z3A.35 35 weeks gestation of pregnancy
CPT/HCPCS: 76818; Z7500; G0463

== ENCOUNTER 2016-09-01 14:04 | Outpatient (CLI) | payer MEDICAID ==
[~2016-09-01] VITALS: Ht 165.1 cm; Wt 85.3 kg
[2016-09-01 14:27] VITALS: Ht 165.1 cm; Wt 85.3 kg
[2016-09-01 14:28] VITALS: BP 104/58; PULSE 93; RESP 18
--- NOTE | 2016-09-01 14:54 | RADRPT ---
PROCEDURE: US OB biophysical profile. CLINICAL INDICATION: evaluation, cholestasis TECHNIQUE: Multiple sonographic images of the pelvis were obtained. The images were reviewed on a PACS workstation. COMPARISON: Obstetrical ultrasound from 08/30/2016 FINDINGS: There is a single viable intrauterine gestation. Cardiac activity is present with 154 beats per min josie. There is a vertex presentation. The placenta is anterior. There is no evidence of placental abruption. There is a normal amount of amniotic fluid with an CHANG = 9.9 cm. Biophysical profile: movement 2/2 tone 2/2. breathing 2/2 CHANG 2/2 Total 09/13 RPTAT: AA . IMPRESSION: Normal biophysical profile. Normal CHANG. Physician Marysol Date Time Electronically viewed and signed by Physician Marysol on 09/01/2016 14:53 /
[2016-09-01 15:04] LABS: BASOPHILS % 0.2 % (0.0-2.0); EOSINOPHILS # 0.1 10^3/ul (0.0-0.5); EOSINOPHILS % 1.1 % (0.0-7.0); HEMATOCRIT 32.9 % (37.0-47.0); HEMOGLOBIN 10.4 g/dl (12.0-16.0); LYMPHOCYTES # 1.6 10^3/ul (0.8-2.9); LYMPHOCYTES % 14.7 % (15.0-51.0); MEAN CORPUSCULAR HGB CONC 31.6 g/dl (32.0-37.0); MEAN CORPUSCULAR VOLUME 72.8 fl (82.0-101.0); MEAN PLATELET VOLUME 10.5 fl (7.4-10.4); MONOCYTE # 0.8 10^3/ul (0.3-0.9); MONOCYTES % 7.4 % (0.0-11.0); NEUTROPHILS % 75.7 % (39.0-77.0); PLATELET COUNT 282 10^3/UL (140-415); RED BLOOD COUNT 4.52 10^6/ul (4.20-5.40); RED CELL DISTRIBUTION WIDTH 21.5 % (11.5-14.5); WHITE BLOOD COUNT 10.6 10^3/ul (4.8-10.8)
[2016-09-01 15:18] LABS: ADD UMIC NO; UR ASCORBIC ACID NEGATIVE (NEGATIVE); UR BACTERIA FEW /HPF (NONE SEEN); UR BILIRUBIN (Dip) NEGATIVE (NEGATIVE); UR BLOOD (Dip) NEGATIVE (NEGATIVE); UR CLARITY SLIGHTLY CLOUDY (CLEAR); UR COLOR YELLOW (YELLOW); UR GLUCOSE (Dip) 1+ mg/dL (NEGATIVE); UR KETONES (Dip) NEGATIVE (NEGATIVE); UR LEUKOCYTE ESTERASE (Dip) NEGATIVE Leu/ul (NEGATIVE); UR NITRITE (Dip) NEGATIVE (NEGATIVE); UR RBC 0 /HPF (0-5); UR SPECIFIC GRAVITY (Dip) 1.005 (1.003-1.030); UR SQUAMOUS EPITHELIAL CELL FEW /HPF (FEW); UR TOTAL PROTEIN (Dip) NEGATIVE (NEGATIVE); UR UROBILINOGEN (Dip) NEGATIVE (NEGATIVE)
[2016-09-01 15:19] LABS: INR 0.93; PROTIME 12.5 Sec (12.2-14.2)
[2016-09-01 15:20] LABS: PARTIAL THROMBOPLASTIN TIME 27.6 Sec (25.0-35.0)
[2016-09-01 15:21] LABS: ALBUMIN 3.4 g/dl (3.3-4.9); ALBUMIN/GLOBULIN RATIO 0.97; BILIRUBIN,INDIRECT 0.2 mg/dl (0-1.1); BILIRUBIN,TOTAL 0.2 mg/dl (0.2-1.3); CREATININE 0.55 mg/dl (0.44-1.00); TOTAL PROTEIN 6.9 g/dl (6.1-8.1)
--- NOTE | 2016-09-01 17:01 | CONS ---
Date/Time of Note Date/Time of Note DATE: 09/01/16 TIME: 16:45 Consultation Date/Type/Reason Admit Date/Time September 01, 2016 OB triage consult Hx of Present Illness This patient is a 26 years old 3 para 1 1 living 1 with estimated date of confinement of September 29, 2016 which makes her 35 weeks and 4 days now. She was sent to the triage area to rule out preeclampsia however she does have cholestasis of the On examination she is a well-developed well-nourished lady near term her general vital signs are basically normal with blood pressure of the 104/58 pulse rate 93 respiration 18 temperature 98,,,, and oxygen saturation of 99% at room temperature. heart tone is 145 minutes and normal Her abdomen is soft occasional contraction. heart tone is normal with good variability occasional acceleration no decelerations. Laboratory Tests Test 09/01/16 14:30 09/01/16 14:55 Urine Color YELLOW Urine Clarity SLIGHTLY CLOUDY Urine pH 6.0 Urine Specific [place] 1.005 Urine Ketones NEGATIVEmg/dL Urine Nitrite NEGATIVEmg/dL Urine Bilirubin NEGATIVEmg/dL Urine Urobilinogen NEGATIVEmg/dL Urine Leukocyte Esterase NEGATIVELeu/ul Urine Microscopic RBC 0/HPF Urine Microscopic WBC 1/HPF Urine Squamous Epithelial Cells FEW/HPF Urine Bacteria FEW/HPF Urine Hemoglobin NEGATIVEmg/dL Urine Glucose 1+mg/dL Urine Total Protein NEGATIVEmg/dl White Blood Count 10.610^3/ul Red Blood Count 4.5210^6/ul Hemoglobin 10.4g/dl Hematocrit 32.9% Mean Corpuscular Volume 72.8fl Mean Corpuscular Hemoglobin 23.0pg Mean Corpuscular Hemoglobin Concent 31.6g/dl Red Cell Distribution Width 21.5% Platelet Count 65737^3/UL Mean Platelet Volume 10.5fl Neutrophils % 75.7% Lymphocytes % 14.7% Monocytes % 7.4% Eosinophils % 1.1% Basophils % 0.2% Nucleated Red Blood Cells % 0.0/100WBC Neutrophils # 8.010^3/ul Lymphocytes # 1.610^3/ul Monocytes # 0.810^3/ul Eosinophils # 0.110^3/ul Basophils # 0.010^3/ul Nucleated Red Blood Cells # 0.010^3/ul Prothrombin Time 12.5Sec Prothrombin Time Ratio 1.0 INR International Normalized Ratio 0.93 Activated Partial Thromboplast Time 27.6Sec Fibrinogen 690.0mg/dl Sodium Level 138mmol/L Potassium Level 4.0mmol/L Chloride Level 102mmol/L Carbon Dioxide Level 22mmol/L Anion Gap 18 Blood Urea Nitrogen 7mg/dl Creatinine 0.55mg/dl Glucose Level 140mg/dl Uric Acid 3.0mg/dl Calcium Level 9.0mg/dl Total Bilirubin 0.2mg/dl Direct Bilirubin 0.00mg/dl Indirect Bilirubin 0.2mg/dl Aspartate Amino Transf (AST/SGOT) 22IU/L Alanine Aminotransferase (ALT/SGPT) 41IU/L Alkaline Phosphatase 190IU/L Total Protein 6.9g/dl Albumin 3.4g/dl Globulin 3.50g/dl Albumin/Globulin Ratio 0.97 Constitutional: No chills, No diaphoresis, No disoriented, No febrile, No improved, No no complaints, No other, No poor po, No requiring IVF, No requiring O2 Eyes: No discharge, No no complaints, No other, No pain, No redness, No visual change ENT: No bleeding, No congestion, No discharge, No dysphagia, No no complaints, No other, No pain, No sore throat Respiratory: other (Chest is clear to auscultation her precaution), No cough, No no complaints, No pain, No pleuritic pain, No shortness of breath, No sputum, No wheezing Cardiovascular: other (Heart normal sinus rhythm no murmur), No chest pain, No edema, No lightheadedness, No no complaints, No orthopenea , No palpitations, No paroxysmal nocturnal dyspnea Gastrointestinal: other (Abdomen is soft fundus is soft as I mentioned heart tone is normal), No blood, No constipation, No decreased appetite, No diarrhea, No flatus, No nausea, No no complaints, No pain, No passing stool, No vomiting Genitourinary: other (Due to the fact that she did not have any contraction pelvic examination was not performed), No bleeding, No discharge, No dysuria, No flank pain, No hematuria, No no complaints Musculoskeletal: No back pain, No bone/joint pain, No neck pain, No no complaints, No other, No restricted range of motion, No swelling Skin: No bruising, No erythema, No laceration, No no complaints, No other, No pruritis, No rash, No skin lesions Neurologic: other (Knee-jerk reflexes 1+), No confusion, No dizziness, No focal-weakness, No headache, No no complaints , No seizure, No syncope Endocrine: No dry skin, No no complaints, No other, No polydypsia, No polyuria , No temp intolerance Additional Comments We have been fairly complete laboratory study to rule out any possibility of a -induced hypertension on her CBC except for slight anemia with hemoglobin of 10.4 hematocrit 32.9 there was no other abnormality her platelet count was 282,000. Electrolytes were normal liver function tests were normal alkaline phosphatase was slightly elevated 190 which is not abnormal during her urinalysis was normal basically no proteinuria 1+ glucose no bacteria coagulation study was normal ProTime of 12.5 PTT of 27.6 and fibrinogen of 690. We also did an ultrasound study the report was a single viable intrauterine gestation with cardiac activity 154 bpm fetus in vertex presentation placenta was anterior and amniotic fluid index was 9.9 cm biophysical profile was reported 09/13 Disposition with these positive finding and absolutely no evidence of - induced hypertension patient was discharged home to be followed in the clinic and return to triage in case of a contractions bleeding or very low movement. Final diagnosis;intrauterine of 34-1/2 weeks negative workup for induced hypertension Exam/Review of Systems Vital Signs Vitals Vital Signs Date Time Temp Pulse Resp B/P Pulse Ox O2 Delivery O2 Flow Rate FiO2 09/01/16 14:28 98.0 93 18 104/58 99 Room Air Results Result Diagram: 09/01/16 1455 09/01/16 1455 Results 24 hrs Laboratory Tests Test 09/01/16 14:30 09/01/16 14:55 Urine Color YELLOW Urine Clarity SLIGHTLY CLOUDY A Urine pH 6.0 Urine Specific [place] 1.005 Urine Ketones NEGATIVE Urine Nitrite NEGATIVE Urine Bilirubin NEGATIVE Urine Urobilinogen NEGATIVE Urine Leukocyte Esterase NEGATIVE Urine Microscopic RBC 0 Urine Microscopic WBC 1 Urine Squamous Epithelial Cells FEW Urine Bacteria FEW A Urine Hemoglobin NEGATIVE Urine Glucose 1+ H Urine Total Protein NEGATIVE White Blood Count 10.6 Red Blood Count 4.52 Hemoglobin 10.4 L Hematocrit 32.9 L Mean Corpuscular Volume 72.8 L Mean Corpuscular Hemoglobin 23.0 L Mean Corpuscular Hemoglobin Concent 31.6 L Red Cell Distribution Width 21.5 H Platelet Count 282 Mean Platelet Volume 10.5 H Neutrophils % 75.7 Lymphocytes % 14.7 L Monocytes % 7.4 Eosinophils % 1.1 Basophils % 0.2 Nucleated Red Blood Cells % 0.0 Neutrophils # 8.0 H Lymphocytes # 1.6 Monocytes # 0.8 Eosinophils # 0.1 Basophils # 0.0 Nucleated Red Blood Cells # 0.0 Prothrombin Time 12.5 Prothrombin Time Ratio 1.0 INR International Normalized Ratio 0.93 Activated Partial Thromboplast Time 27.6 Fibrinogen 690.0 #H Sodium Level 138 Potassium Level 4.0 Chloride Level 102 Carbon Dioxide Level 22 Anion Gap 18 H Blood Urea Nitrogen 7 Creatinine 0.55 Glucose Level 140 Uric Acid 3.0 L Calcium Level 9.0 Total Bilirubin 0.2 Direct Bilirubin 0.00 Indirect Bilirubin 0.2 Aspartate Amino Transf (AST/SGOT) 22 Alanine Aminotransferase (ALT/SGPT) 41 Alkaline Phosphatase 190 H Total Protein 6.9 Albumin 3.4 Globulin 3.50 H Albumin/Globulin Ratio 0.97 SHARYN HURT MD Sep 01, 2016 17:01
== END 2016-09-01 16:27 | disposition home or self-care (01) ==
LOC: OBT 14:04 → L-D 14:05 → OBT 16:27
PROVIDERS: ATTEND Obstetrics & Gynecology
DX: O26.613 Liver and biliary tract disorders in pregnancy, third trimester (principal); K83.1 Obstruction of bile duct; Z3A.35 35 weeks gestation of pregnancy
CPT/HCPCS: 76818; 80053; 81001; 81003; 84560; 85025; 85384; 85610; 85730; Z7500; G0463

== ENCOUNTER 2016-09-04 12:52 | Outpatient (CLI) | payer MEDICAID ==
[~2016-09-04] VITALS: Ht 165.1 cm; Wt 86.4 kg
[2016-09-04 13:05] VITALS: BP 113/61; PULSE 100; RESP 18
--- NOTE | 2016-09-04 14:14 | RADRPT ---
PROCEDURE: US OB biophysical profile. CLINICAL INDICATION: decreased movements, pain TECHNIQUE: Multiple sonographic images of the pelvis were obtained. The images were reviewed on a PACS workstation. COMPARISON: 09/01/16 FINDINGS: There is a single viable intrauterine gestation. Cardiac activity is present with 150 beats per min josie. There is a vertex presentation. The placenta is anterior. There is no evidence of placental abruption. There is a normal amount of amniotic fluid with an CHANG = 11.3 cm. Biophysical profile: movement 2/2 tone 2/2. breathing 2/2 CHANG 2/2 Total 09/13 RPTAT: AA . IMPRESSION: Normal biophysical profile. . .Gatito Jaimes MD, MD Date Time Electronically viewed and signed by .Gatito Jaimes MD, MD on 09/04/2016 14:14 .S/
--- NOTE | 2016-09-04 14:26 | TRIAGE ---
OB Triage Datetime Report Generated by CPN: 09/04/2016 14:26 Datetime: 09/04/2016 14:19 Stage of : OB Triage Datetime: 09/04/2016 13:34 Maternal Assessment Level of Consciousness: Fully Conscious Headache: Denies Blurred Vision: No Nausea/Vomiting: Denies RUQ Epigastric Pain: Denies Facial Edema: None Labor Evaluation Frequency: x1 Monitor Mode: External Duration (sec)2399: 60 Quality: Mild Pattern: Normal: <= 5 Contractions in 10 Minutes Resting Tone [place]: Relaxed Contraction Comments: PT REPORTS THAT SHE DOES NOT FEEL CONTRACTIONS. Heart Rate FHR Baseline Rate: 145 Monitor Mode: External US FHR Baseline Changes: No Baseline Change Variability: Moderate 6-25 bpm Accelerations: 15X15 Decelerations: None Category: Category I Pain Assessment Pain Scale: 0 Pain Presence: None/Denies Pain Type: N/A Datetime: 09/04/2016 13:00 Time of Arrival: 09/04/2016 12:47 EGA: 36.0 Arrived By: Ambulatory Arrived From: Home Chief Complaint: FOLLOW UP FOR CHOLESTASIS - NST/BPP Movement: Decreased Contractions: Denies/Absent Rupture of Membranes: Denies Vaginal Bleeding: None Vaginal Discharge: Denies Abdominal Trauma: Not Applicable Patient Complaints: None Time Provider Notified: 09/03/2016 14:19 Provider Notified: DR. BRASWELL Initial Plan: NST, BPP Datetime: 09/04/2016 12:57 Stage of : OB Triage Assessment Type: Triage Maternal Assessment Level of Consciousness: Fully Conscious Headache: Denies Blurred Vision: No Respiratory Effort: Unlabored; Regular Rhythm; Equal Expansion Breath Sounds, Left: Clear and Equal Breath Sounds, Right: Clear and Equal Nausea/Vomiting: Denies RUQ Epigastric Pain: Denies Lower Extremities Edema: None Degree: None Upper Extremities Edema: None Degree: None Facial Edema: None Temperature Route: Oral Fall Risk Assessment History of Falling: (0) No Secondary Diagnosis: (0) No Ambulatory Aid: (0) Bedrest/Nurse Assist IV Therapy: (0) No Gait: (0) Normal/Bedrest/Immobile Mental Status: (0) Oriented to Own Ability Fall Score: 0 Fall Risk Score Definition: No Risk: No action required Pain Assessment Pain Scale: 0 Pain Presence: None/Denies Pain Type: N/A Datetime: 09/01/2016 15:38 Labor Evaluation Frequency: none Pattern: Normal: <= 5 Contractions in 10 Minutes Resting Tone [place]: Relaxed Heart Rate FHR Baseline Rate: 140 FHR Baseline Changes: No Baseline Change Variability: Moderate 6-25 bpm Accelerations: 15X15 Decelerations: None Category: Category I Datetime: 09/01/2016 15:18 Labor Evaluation Frequency: none Pattern: Normal: <= 5 Contractions in 10 Minutes Resting Tone [place]: Relaxed Heart Rate FHR Baseline Rate: 130 Monitor Mode: External US FHR Baseline Changes: No Baseline Change Variability: Moderate 6-25 bpm Accelerations: 15X15 Decelerations: None Category: Category I Datetime: 09/01/2016 14:53 Stage of : OB Triage Labor Evaluation Frequency: none Pattern: Normal: <= 5 Contractions in 10 Minutes Resting Tone [place]: Relaxed Heart Rate FHR Baseline Rate: 130 Monitor Mode: External US FHR Baseline Changes: No Baseline Change Variability: Moderate 6-25 bpm Accelerations: 15X15 Decelerations: None Category: Category I Datetime: 09/01/2016 14:21 Stage of : OB Triage Maternal Assessment Level of Consciousness: Fully Conscious DTR's/Clonus: DTRs 2+; No Clonus Headache: Denies Blurred Vision: No Respiratory Effort: Unlabored; Regular Rhythm; Equal Expansion Breath Sounds, Left: Clear and Equal Breath Sounds, Right: Clear and Equal Nausea/Vomiting: Denies RUQ Epigastric Pain: Denies Lower Extremities Edema: None Degree: None Upper Extremities Edema: None Degree: None Facial Edema: None Temperature Route: Axillary Fall Risk Assessment History of Falling: (0) No Secondary Diagnosis: (0) No Ambulatory Aid: (0) Bedrest/Nurse Assist IV Therapy: (0) No Gait: (0) Normal/Bedrest/Immobile Mental Status: (0) Oriented to Own Ability Fall Score: 0 Fall Risk Score Definition: No Risk: No action required Monitor Mode: External Heart Rate FHR Baseline Rate: 140 Monitor Mode: External US Pain Assessment Pain Scale: 0 Datetime: 09/01/2016 14:17 Time of Arrival: 09/01/2016 14:18 EGA: 35.4 Arrived By: Ambulatory Arrived From: Dr. Office Chief Complaint: cholestasis of , r/o preeclampsia Movement: Present Rupture of Membranes: Denies Vaginal Discharge: Denies Recent Sexual Intercouse: Denies Abdominal Trauma: Not Applicable Patient Complaints: Other Time Provider Notified: 09/01/2016 14:40 Provider Notified: Foroohar Initial Plan: efm/ BPP Datetime: 08/30/2016 12:14 Stage of : OB Triage Datetime: 08/30/2016 11:30 Labor Evaluation Frequency: 0 Monitor Mode: External Resting Tone [place]: Relaxed Heart Rate FHR Baseline Rate: 135 Monitor Mode: External US Variability: Moderate 6-25 bpm Accelerations: 10X10 Decelerations: None Category: Category I Pain Assessment Pain Scale: 0 Pain Presence: None/Denies Pain Type: N/A Pain Goal: 3 Pain Relief Measures: Comfort Measures Datetime: 08/30/2016 10:36 Labor Evaluation Frequency: 0 Monitor Mode: External Resting Tone [place]: Relaxed Heart Rate FHR Baseline Rate: 145 Monitor Mode: External US Variability: Moderate 6-25 bpm Decelerations: None Category: Category II Pain Assessment Pain Scale: 0 Pain Presence: None/Denies Pain Type: N/A Pain Goal: 3 Pain Relief Measures: Comfort Measures Datetime: 08/30/2016 09:36 Stage of : OB Triage Assessment Type: Triage Maternal Assessment Level of Consciousness: Fully Conscious DTR's/Clonus: DTRs 2+; No Clonus Headache: Denies Blurred Vision: No Respiratory Effort: Unlabored; Regular Rhythm; Equal Expansion Breath Sounds, Left: Clear and Equal Breath Sounds, Right: Clear and Equal Nausea/Vomiting: Denies RUQ Epigastric Pain: Denies Facial Edema: None Temperature Route: Axillary Fall Risk Assessment History of Falling: (0) No Secondary Diagnosis: (0) No Ambulatory Aid: (0) Bedrest/Nurse Assist IV Therapy: (0) No Gait: (0) Normal/Bedrest/Immobile Mental Status: (0) Oriented to Own Ability Fall Score: 0 Fall Risk Score Definition: No Risk: No action required Labor Evaluation Frequency: 0 Monitor Mode: External Resting Tone [place]: Relaxed Heart Rate FHR Baseline Rate: 145 Monitor Mode: External US Variability: Moderate 6-25 bpm Decelerations: None Category: Category I Pain Assessment Pain Scale: 0 Pain Presence: None/Denies Pain Type: N/A Pain Goal: 3 Pain Relief Measures: Comfort Measures Datetime: 08/28/2016 18:11 Time of Arrival: 08/30/2016 09:20 EGA: 35.2 Arrived By: Ambulatory Arrived From: Home Chief Complaint: FOLLOW UP NST/BPP FOR CHOLESTASIS Movement: Present Contractions: Denies/Absent Rupture of Membranes: Denies Vaginal Bleeding: None Vaginal Discharge: Denies Recent Sexual Intercouse: Denies Abdominal Trauma: Not Applicable Patient Complaints: None Time Provider Notified: 08/30/2016 12:15 Provider Notified: JAYCE Initial Plan: MONITOR, NST/BP Datetime: 08/28/2016 10:53 EGA: 35.0 Datetime: 08/28/2016 10:44 Fall Score: 0 Fall Risk Score Definition: No Risk: No action required Datetime: 08/25/2016 12:43 Fall Score: 0 Fall Risk Score Definition: No Risk: No action required Datetime: 08/25/2016 12:41 EGA: 34.4 Datetime: 08/24/2016 10:21 Fall Score: 0 Fall Risk Score Definition: No Risk: No action required Datetime: 08/24/2016 10:19 EGA: 34.3 Datetime: 08/22/2016 17:08 Fall Score: 0 Fall Risk Score Definition: No Risk: No action required Datetime: 08/22/2016 14:00 EGA: 34.1 Datetime: 08/22/2016 13:30 Fall Score: 0 Fall Risk Score Definition: No Risk: No action required
--- NOTE | 2016-09-04 15:30 | PN ---
Triage Information Date/Time September 04, 2016 Weeks of Gestation 36 weeks : 3 Para: 1 Diabetes: none Hypertention: none Additional information Cholestasis of . Here for NST/BPP. PMHx: none. PSHx: C/S x 1. POBHx: C/S x 1. SAB x 1. NKDA. Objective Vital Signs Date Time Temp Pulse Resp B/P Pulse Ox O2 Delivery O2 Flow Rate FiO2 09/04/16 13:05 97.7 100 18 113/61 97 Room Air Heart Rate: 140's Heart Rate Comments Basleine 145 bpm with accels to 160+ bpm. No decels. No UC's. Contractions: None Results/Medications Imaging Results BPP 09/13. CHANG 11.3 cm. Assessment/Plan A: IUP at 36 weeks Cholestasis of . P: Continue NST/BPP twice a week, kick counts reviewed with pt. Continue Actigall. Pt scheduled for a repeat C/S 09/12. ALLAN BRASWELL MD Sep 04, 2016 15:30
--- NOTE | 2016-09-04 15:41 | TRIAGE ---
OB Triage Datetime Report Generated by CPN: 09/04/2016 15:41 Datetime: 09/04/2016 15:22 Stage of : OB Triage
== END 2016-09-04 15:27 | disposition home or self-care (01) ==
LOC: OBT 12:52 → L-D 12:52 → OBT 15:27
PROVIDERS: ATTEND Obstetrics & Gynecology
DX: O26.613 Liver and biliary tract disorders in pregnancy, third trimester (principal); K83.1 Obstruction of bile duct; Z3A.36 36 weeks gestation of pregnancy
CPT/HCPCS: 76818; Z7500; G0463

== ENCOUNTER 2016-09-07 11:56 | Inpatient (IN) | payer MEDICAID ==
[~2016-09-07] VITALS: Ht 165.1 cm; Wt 85.9 kg
[2016-09-07 12:08] VITALS: Ht 165.1 cm; Wt 85.9 kg
[2016-09-07 12:09] VITALS: BP 111/66; PULSE 101; RESP 18
--- NOTE | 2016-09-07 12:49 | RADRPT ---
PROCEDURE: US OB biophysical profile. CLINICAL INDICATION: evaluation, cholestasis TECHNIQUE: Multiple sonographic images of the pelvis were obtained. The images were reviewed on a PACS workstation. COMPARISON: Obstetrical ultrasound from 09/04/2016 FINDINGS: There is a single viable intrauterine gestation. Cardiac activity is present with 161 beats per min josie. There is a vertex presentation. The placenta is anterior. There is no evidence of placental abruption. There is a normal amount of amniotic fluid with an CHANG = 5.9 cm. Biophysical profile: movement 2/2 tone 2/2. breathing 2/2 CHANG 2/2 Total 09/13 RPTAT: AA . IMPRESSION: Normal biophysical profile. Low CHANG of 5.9 cm, compared with an CHANG of 11.3 cm on 09/04/2016. Physician Marysol Date Time Electronically viewed and signed by Physician Marysol on 09/07/2016 12:49 /
--- NOTE | 2016-09-07 14:54 | TRIAGE ---
OB Triage Datetime Report Generated by CPN: 09/07/2016 14:54 Datetime: 09/07/2016 13:30 Stage of : OB Triage Labor Evaluation Frequency: OCC Monitor Mode: External Duration (sec)2399: 60-80 Quality: Mild Pattern: Normal: <= 5 Contractions in 10 Minutes Resting Tone [place]: Relaxed Heart Rate FHR Baseline Rate: 140 Monitor Mode: External US Variability: Moderate 6-25 bpm Accelerations: 15X15 Decelerations: None Category: Category I Pain Assessment Pain Scale: 0 Pain Presence: None/Denies Pain Type: N/A Datetime: 09/07/2016 12:03 Assessment Type: Triage Maternal Assessment Level of Consciousness: Fully Conscious DTR's/Clonus: DTRs 2+; No Clonus Headache: Denies Blurred Vision: No Respiratory Effort: Unlabored; Regular Rhythm; Equal Expansion Breath Sounds, Left: Clear and Equal Breath Sounds, Right: Clear and Equal Nausea/Vomiting: Denies RUQ Epigastric Pain: Denies Lower Extremities Edema: None Degree: None Upper Extremities Edema: None Degree: None Facial Edema: None Fall Risk Assessment History of Falling: (0) No Secondary Diagnosis: (0) No Ambulatory Aid: (0) Bedrest/Nurse Assist IV Therapy: (0) No Gait: (0) Normal/Bedrest/Immobile Mental Status: (0) Oriented to Own Ability Fall Score: 0 Fall Risk Score Definition: No Risk: No action required Datetime: 09/07/2016 12:02 Time of Arrival: 09/07/2016 11:48 EGA: 36.3 Arrived By: Ambulatory Arrived From: Home Chief Complaint: PT HERE FOR NST/BPP FOR CHOLESTASIS Movement: Present Contractions: Denies/Absent Rupture of Membranes: Denies Vaginal Bleeding: None Vaginal Discharge: Denies Recent Sexual Intercouse: Denies Abdominal Trauma: Not Applicable Patient Complaints: None Time Provider Notified: 09/07/2016 13:00 Provider Notified: HAMZAH Initial Plan: NST/BPP Monitor Mode: External Monitor Mode: External US Datetime: 09/04/2016 13:00 EGA: 36.0 Datetime: 09/04/2016 12:57 Fall Score: 0 Fall Risk Score Definition: No Risk: No action required Datetime: 09/01/2016 14:21 Fall Score: 0 Fall Risk Score Definition: No Risk: No action required Datetime: 09/01/2016 14:17 EGA: 35.4 Datetime: 08/30/2016 09:36 Fall Score: 0 Fall Risk Score Definition: No Risk: No action required Datetime: 08/28/2016 18:11 EGA: 35.2 Datetime: 08/28/2016 10:53 EGA: 35.0 Datetime: 08/28/2016 10:44 Fall Score: 0 Fall Risk Score Definition: No Risk: No action required Datetime: 08/25/2016 12:43 Fall Score: 0 Fall Risk Score Definition: No Risk: No action required Datetime: 08/25/2016 12:41 EGA: 34.4 Datetime: 08/24/2016 10:21 Fall Score: 0 Fall Risk Score Definition: No Risk: No action required Datetime: 08/24/2016 10:19 EGA: 34.3 Datetime: 08/22/2016 17:08 Fall Score: 0 Fall Risk Score Definition: No Risk: No action required Datetime: 08/22/2016 14:00 EGA: 34.1 Datetime: 08/22/2016 13:30 Fall Score: 0 Fall Risk Score Definition: No Risk: No action required
[2016-09-07] MEDS ORDERED: LACTATED RINGER'S 1,000 ML IV SCH (15:21)
[2016-09-07] MEDS ORDERED: MISOPROSTOL 200 MCG TAB PR PRN ×4 (15:30→23:00)
[2016-09-07] MEDS ORDERED: CARBOPROST 250 MCG INJ IM PRN ×4 (15:30→23:00)
[2016-09-07] MEDS ORDERED: OXYTOCIN 30 UNITS/LR 500 ML IV PRN ×4 (15:30→23:00)
[2016-09-07] MEDS ORDERED: METHYLERGONOVINE 0.2 MG INJ IM PRN ×4 (15:30→23:00)
[2016-09-07] MEDS ORDERED: CEFAZOLIN 2 GM/50 ML (PMX) 50 ML IV SCH (15:30)
[2016-09-07] MEDS ORDERED: OXYTOCIN 30 UNITS/LR 500 ML IV SCH ×3 (15:30→22:50)
[2016-09-07 15:31] LABS: BASOPHILS % 0.2 % (0.0-2.0); EOSINOPHILS # 0.1 10^3/ul (0.0-0.5); HEMATOCRIT 33.9 % (37.0-47.0); HEMOGLOBIN 10.7 g/dl (12.0-16.0); LYMPHOCYTES # 1.4 10^3/ul (0.8-2.9); MEAN CORPUSCULAR HEMOGLOBIN 23.1 pg (29.0-33.0); MEAN CORPUSCULAR HGB CONC 31.6 g/dl (32.0-37.0); MEAN CORPUSCULAR VOLUME 73.1 fl (82.0-101.0); MEAN PLATELET VOLUME 10.7 fl (7.4-10.4); MONOCYTE # 0.7 10^3/ul (0.3-0.9); MONOCYTES % 7.4 % (0.0-11.0); NEUTROPHIL # 7.1 10^3/ul (1.6-7.5); NEUTROPHILS % 75.8 % (39.0-77.0); PLATELET COUNT 251 10^3/UL (140-415); RED BLOOD COUNT 4.64 10^6/ul (4.20-5.40); WHITE BLOOD COUNT 9.3 10^3/ul (4.8-10.8)
[2016-09-07] MEDS ORDERED: LACTATED RINGER'S 1,000 ML IV ONE (15:32)
[2016-09-07 15:51] LABS: INR 0.91; PROTIME 12.2 Sec (12.2-14.2)
[2016-09-07 15:52] LABS: PARTIAL THROMBOPLASTIN TIME 27.6 Sec (25.0-35.0)
[2016-09-07] MEDS ORDERED: FAMOTIDINE 20 MG INJ IV ONE (16:00)
[2016-09-07] MEDS ORDERED: CITRIC ACID/NA CITRATE 30 ML CUP PO ONE (16:00)
[2016-09-07] MEDS ORDERED: METOCLOPRAMIDE 10 MG INJ IV ONE (16:00)
[2016-09-07] MEDS ORDERED: morphine SULFATE/PF (10 MG/10 ML) INJ ONE (16:27)
[2016-09-07] MEDS ORDERED: FENTAnyl 50 MCG/ML VIAL ONE (16:27)
[2016-09-07] MEDS ORDERED: PHENYLephrine (100 MCG/ML) 5ML SYG ONE (16:47)
[2016-09-07] MEDS ORDERED: ONDANSETRON 4 MG INJ ONE (16:58)
[2016-09-07] MEDS ORDERED: DIPHENHYDRAMINE 50 MG INJ IV PRN ×2 (17:30→20:30)
[2016-09-07] MEDS ORDERED: KETOROLAC 30 MG INJ IV PRN ×2 (17:30→20:30)
[2016-09-07] MEDS ORDERED: HYDROmorphONE (0.2 MG/ML) 10ML SYG IV PRN (17:30)
[2016-09-07] MEDS ORDERED: ONDANSETRON 4 MG INJ IV PRN ×2 (17:30→20:30)
[2016-09-07] MEDS ORDERED: PROCHLORPERAZINE 10 MG INJ IV PRN (17:30)
[2016-09-07] MEDS ORDERED: FENTAnyl 50 MCG/ML VIAL IV PRN (17:30)
[2016-09-07] MEDS ORDERED: OXYTOCIN 30 UNITS/LR 500 ML IV ONE (17:30)
[2016-09-07] MEDS ORDERED: MEPERIDINE 25 MG INJ IV PRN (17:30)
--- NOTE | 2016-09-07 18:10 | HP ---
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 Rubella: immune RPR/VDRL: Negative GBS Status: Negative HBsAG: Negative OB Admission Exam Vital Signs Vital Signs Vital Signs Date Time Temp Pulse Resp B/P Pulse Ox O2 Delivery O2 Flow Rate FiO2 09/07/16 12:09 98.2 101 18 111/66 98 Room Air Physical Exam HEENT: WNL Heart: Rhythm Normal Abdomen: WNL Reflexes: Normal Cervical Dilatation: None Accelerations: Accelerations Present Last 72 hours Lab Results CBC & BMP 09/07/16 15:15 OB Assessment/Plan Reason for admission: other (Cholestasis of at 36-1/2) Plan: Other (Repeat section) IRISH GOODSON MD Sep 07, 2016 18:07
--- NOTE | 2016-09-07 18:18 | OPR ---
Operative Report Planned Procedure Free Text/Dictation 36-1/2 weeks complicated with cholestasis of history of previous section being prepared to undergo repeat Procedure date Sep 07, 2016 Procedure(s) Repeat Performed by: IRISH GOODSON MD Assisting provider: TAYE CADET MD Anesthesiologist: GENA MONTANA MD Pre-procedure diagnosis 36-1/2 weeks , cholestasis of previous section Anesthesia Type: spinal Procedure Description Under satisfactory [spine] anesthesia, the patient was prepped and draped and placed in a supine position, tilted to the left. Pfannenstiel incision was made , carried through the subcutaneous tissue. Bleeders brought under control with electrocautery. Fascia incised to the length of the incision. Rectus muscles from the fascia, divided midline. Peritoneum exposed, entered through a transverse incision. Exploration of abdomen revealed gravid uterus. Normal- appearing tubes and ovaries bladder flap was developed. Transverse incision was made in the lower segment of the uterus. Amniotic sac ruptured. Clear amniotic fluid noted. [Light baby boy was delivered from occiput transverse] Nasal oropharyngeal suction was performed. The baby was handed to the team for immediate attention. The placenta was delivered manually intact. Uterine cavity was cleaned with wet sponge and drainage established. Uterus closed in 2 layers using [Monocryl #1] in continuous fashion. Peritoneal cavity irrigated with warm saline. Sponge, needle and instrument count reported to be correct. Abdominal peritoneum closed with [2-0 chromic catgut] continuously. Rectus muscle approximated with [2-0 chromic catgut]. Fascia closed with #1 PDS [] subcutaneous tissue approximated with few interrupted 2-0 chromic catgut, skin closed with bertha. Estimated blood loss [600]mL. Urine bag contained 200 []mL of clear urine patient tolerated procedure well transferred to recovery room in good condition Post-Procedure Findings: Live Baby boy 8 and 9 baby waited [id number] Complications: None Pt Condition post procedure: stable Physician Certification I, the undersigned physician, hereby certify that I have discussed the procedure described in this consent form with this patient (or the patient's legal tour sales representative), including: * The risk and benefits of the procedure; * Any adverse reactions that may reasonably be expected to occur; * Any alternative efficacious methods of treatment which may be medically viable ; * The potential problems that may occur during recuperation; * Potential for blood transfusion and associated risks/benefits; and * Any research or economic interest I may have regarding this treatment. I further certify that the patient/legally responsible person was encouraged to ask question and that all questions were answered. IRISH GOODSON MD Sep 07, 2016 18:18
--- NOTE | 2016-09-07 18:24 | OPR ---
Date/Time of Note Date/Time of Note DATE: 09/07/16 TIME: 18:20 Operative Report Free Text/Dictation 36-1/2 weeks is complicated with cholestasis history of previous C- section Preoperative Diagnosis 363/7 weeks history of previous complicated with cholestasis Postoperative Diagnosis Same as above Operation/Procedure Performed Repeat Surgeon: IRISH GOODSON MD ophthalmic medical assistant: TAYE CADET MD Anesthesia: spinal Estimated Blood Loss: other (600) Complications: None IRISH GOODSON MD Sep 07, 2016 18:24
[2016-09-07] MEDS ORDERED: NALOXONE (0.4 MG/ML) INJ IV PRN (20:30)
[2016-09-07] MEDS ORDERED: ZOLPIDEM 5 MG TAB PO PRN (20:30)
[2016-09-07] MEDS ORDERED: HYDROmorphONE 1 MG/ML SYG IV PRN ×2 (20:30)
[2016-09-07 21:10] LABS: BARBITURATES Negative (NEGATIVE); BENZODIAZEPINES Negative (NEGATIVE); CANNABINOIDS Negative (NEGATIVE); COCAINE Negative (NEGATIVE); OPIATES Positive (NEGATIVE)
[2016-09-07 21:25] VITALS: BP 109/51; PULSE 83; RESP 16
[2016-09-07 22:00] VITALS: BP 105/57; PULSE 93; RESP 16
[2016-09-07] MEDS: LACTATED RINGER'S 1,000 ML IV SCH (22:50)
[2016-09-07 23:00] VITALS: BP 111/66; PULSE 88; RESP 18
[2016-09-07] MEDS ORDERED: CEFAZOLIN 1 GM/50 ML (PMX) 50 ML IVPB SCH ×3 (23:00)
[2016-09-07] MEDS ORDERED: LANOLIN 7 GM TUBE TOP PRN ×2 (23:00)
[2016-09-07] MEDS ORDERED: ACETAMINOPHEN/CODEINE #3 TAB PO PRN ×4 (23:00)
[2016-09-07] MEDS ORDERED: OXYCODONE/ACETAMINOPHEN (5/325) TAB PO PRN ×4 (23:00)
[2016-09-07] MEDS: OXYTOCIN 30 UNITS/LR 500 ML IV SCH (23:18)
[2016-09-08] MEDS ORDERED: IBUPROFEN 600 MG TAB PO SCH
[2016-09-08 00:01] VITALS: BP 107/57; PULSE 20; RESP 20
[2016-09-08 04:00] VITALS: BP 101/51; PULSE 80; RESP 20
[2016-09-08] MEDS: OXYTOCIN 30 UNITS/LR 500 ML IV SCH ×4 (04:05→14:50)
[2016-09-08 08:00] VITALS: BP 97/61; PULSE 69; RESP 18
[2016-09-08] MEDS: SENNA/DOCUSATE NA (8.6MG/50MG) TAB PO SCH ×2 (08:43→08:45)
[2016-09-08 08:47] LABS: BASOPHILS % 0.2 % (0.0-2.0); EOSINOPHILS # 0.1 10^3/ul (0.0-0.5); EOSINOPHILS % 1.1 % (0.0-7.0); HEMOGLOBIN 9.8 g/dl (12.0-16.0); LYMPHOCYTES # 1.1 10^3/ul (0.8-2.9); LYMPHOCYTES % 12.3 % (15.0-51.0); MEAN CORPUSCULAR HEMOGLOBIN 23.2 pg (29.0-33.0); MEAN CORPUSCULAR HGB CONC 31.6 g/dl (32.0-37.0); MEAN CORPUSCULAR VOLUME 73.3 fl (82.0-101.0); MEAN PLATELET VOLUME 10.4 fl (7.4-10.4); MONOCYTE # 0.6 10^3/ul (0.3-0.9); MONOCYTES % 6.9 % (0.0-11.0); NEUTROPHIL # 7.3 10^3/ul (1.6-7.5); NEUTROPHILS % 79.1 % (39.0-77.0); PLATELET COUNT 183 10^3/UL (140-415); RED BLOOD COUNT 4.23 10^6/ul (4.20-5.40); RED CELL DISTRIBUTION WIDTH 21.5 % (11.5-14.5); WHITE BLOOD COUNT 9.2 10^3/ul (4.8-10.8)
[2016-09-08] MEDS ORDERED: SENNA/DOCUSATE NA (8.6MG/50MG) TAB PO SCH (09:00)
--- NOTE | 2016-09-08 10:34 | PN ---
Date/Time of Note Date/Time of Note DATE: 09/08/16 TIME: 10:32 OB Subjective Subjective Subjective Laboratory Tests Test 09/07/16 15:15 09/07/16 20:25 09/08/16 08:31 White Blood Count 9.310^3/ul 9.210^3/ul Red Blood Count 4.6410^6/ul 4.2310^6/ul Hemoglobin 10.7g/dl 9.8g/dl Hematocrit 33.9% 31.0% Mean Corpuscular Volume 73.1fl 73.3fl Mean Corpuscular Hemoglobin 23.1pg 23.2pg Mean Corpuscular Hemoglobin Concent 31.6g/dl 31.6g/dl Red Cell Distribution Width 22.0% 21.5% Platelet Count 20290^3/UL 25338^3/UL Mean Platelet Volume 10.7fl 10.4fl Neutrophils % 75.8% 79.1% Lymphocytes % 15.0% 12.3% Monocytes % 7.4% 6.9% Eosinophils % 1.0% 1.1% Basophils % 0.2% 0.2% Nucleated Red Blood Cells % 0.0/100WBC 0.0/100WBC Neutrophils # 7.110^3/ul 7.310^3/ul Lymphocytes # 1.410^3/ul 1.110^3/ul Monocytes # 0.710^3/ul 0.610^3/ul Eosinophils # 0.110^3/ul 0.110^3/ul Basophils # 0.010^3/ul 0.010^3/ul Nucleated Red Blood Cells # 0.010^3/ul 0.010^3/ul Prothrombin Time 12.2Sec Prothrombin Time Ratio 1.0 INR International Normalized Ratio 0.91 Activated Partial Thromboplast Time 27.6Sec Rapid Plasma Reagin NONREACTIVE Hepatitis B Surface Antigen NEGATIVE Urine Opiates Screen Positive Urine Barbiturates Negative Urine Amphetamines Screen Negative Urine Benzodiazepines Screen Negative Urine Cocaine Screen Negative Urine Cannabinoids Negative Current Medications Medications (Trade) Dose Ordered Sig/Ron Route PRN Reason Start Time Stop Time Status Last Admin Dose Admin Lactated Ringer's 1,000 ml @ 125 mls/hr Q8H IV 09/07/16 15:21 09/07/16 22:58 DC 09/07/16 15:27 Cefazolin Sodium/ Dextrose 50 ml @ 100 mls/hr ONCE IV 09/07/16 15:30 09/07/16 22:58 DC Oxytocin/Lactated Ringer's 500 ml @ 125 mls/hr ONCE IV 09/07/16 15:30 09/07/16 22:59 DC 09/07/16 18:48 Oxytocin/Lactated Ringer's 500 ml @ 0 mls/hr ONCE PRN IV For Hemorrhage Management 09/07/16 15:30 09/07/16 22:59 DC Methylergonovine Maleate (Methergine) 0.2 mg ONCE PRN IM VAGINAL BLEEDING 09/07/16 15:30 09/07/16 23:00 DC Carboprost Tromethamine (Hemabate) 250 mcg ONCE PRN IM VAGINAL BLEEDING 09/07/16 15:30 09/07/16 23:00 DC Misoprostol 1000 mcg 1,000 mcg ONCE PRN [place] VAGINAL BLEEDING 09/07/16 15:30 09/07/16 23:00 DC Lactated Ringer's (Lr) 1,000 ml @ 1,000 mls/hr Q1H ONCE IV 09/07/16 15:32 09/07/16 16:31 DC 09/07/16 16:02 Citric Acid/ Sodium Citrate (Bicitra) 30 ml PRE-OP ONCE PO 09/07/16 16:00 09/07/16 16:01 DC 09/07/16 15:58 Famotidine (Pepcid Iv) 20 mg pre-procedure ONCE IV 09/07/16 16:00 09/07/16 16:01 DC 09/07/16 15:58 Metoclopramide HCl (Reglan) 10 mg ONCE ONCE IV 09/07/16 16:00 09/07/16 16:01 DC 09/07/16 15:58 Morphine Sulfate (Duramorph) 10 mg STK-MED ONCE .ROUTE 09/07/16 16:27 09/07/16 16:28 DC Fentanyl (Sublimaze) 100 mcg STK-MED ONCE .ROUTE 09/07/16 16:27 09/07/16 16:28 DC Phenylephrine HCl (Virgil-Synephrine Inj Syg) 500 mcg STK-MED ONCE .ROUTE 09/07/16 16:47 09/07/16 16:48 DC Ondansetron HCl (Zofran Inj) 4 mg STK-MED ONCE .ROUTE 09/07/16 16:58 09/07/16 16:59 DC Hydromorphone HCl (Dilaudid (Rec)) 0.4 mg PACU ORDER PRN IV PAIN 09/07/16 17:30 09/07/16 21:00 DC Fentanyl (Sublimaze) 25 mcg PACU ORDER PRN IV PAIN 09/07/16 17:30 09/07/16 21:00 DC Ketorolac Tromethamine (Toradol) 30 mg PACU ORDER PRN IV FOR PAIN AFTER IV NARCOTIC MED 09/07/16 17:30 09/07/16 21:00 DC Ondansetron HCl (Zofran Inj) 4 mg PACU ORDER PRN IV NAUSEA AND/OR VOMITING 09/07/16 17:30 09/07/16 21:00 DC Prochlorperazine (Compazine Inj) 5 mg PACU ORDER PRN IV NAUSEA AND/OR VOMITING 09/07/16 17:30 09/07/16 21:00 DC Meperidine HCl (Demerol) 25 mg PACU ORDER PRN IV POST-OP RIGORS 09/07/16 17:30 09/07/16 21:00 DC Diphenhydramine HCl 25 mg 25 mg PACU ORDER PRN IV PRURITUS 09/07/16 17:30 09/07/16 21:00 DC 09/07/16 18:32 Oxytocin/Lactated Ringer's 500 ml @ ud STK-MED ONCE IV 09/07/16 17:30 09/07/16 17:31 DC Naloxone HCl (Narcan) 0.1 mg Q2M PRN IV FOR RESP RATE 8 OR LESS 09/07/16 20:30 09/08/16 16:43 Ketorolac Tromethamine (Toradol) 30 mg Q6H PRN IV PAIN 09/07/16 20:30 09/08/16 16:43 Hydromorphone HCl (Dilaudid) 0.2 mg Q3H PRN IV PAIN LEVEL 1-5 09/07/16 20:30 09/08/16 16:43 Hydromorphone HCl (Dilaudid) 0.4 mg Q3H PRN IV PAIN LEVEL 6-10 09/07/16 20:30 09/08/16 16:43 Diphenhydramine HCl (Benadryl) 25 mg Q6H PRN IV ITCHING 09/07/16 20:30 09/08/16 16:43 09/08/16 00:47 Ondansetron HCl (Zofran Inj) 4 mg Q6H PRN IV NAUSEA AND/OR VOMITING 09/07/16 20:30 09/08/16 16:43 09/08/16 00:48 Zolpidem Tartrate (Ambien) 5 mg HS MAY REPEAT X 1 PRN PO INSOMNIA 09/07/16 20:30 09/08/16 16:43 Miscellaneous Information (* Miscellaneous Pharmacy Order) Duramorph: 0.2 mg Spi... GIVEN XX 09/07/16 20:30 09/08/16 16:43 Acetaminophen/ Codeine Phosphate (Tylenol No.3) 1 tab Q4H PRN PO PAIN LEVEL 4-6 09/07/16 23:00 09/07/16 23:07 DC Acetaminophen/ Codeine Phosphate (Tylenol No.3) 2 tab Q4H PRN PO PAIN LEVEL 7-10 09/07/16 23:00 09/07/16 23:07 DC Oxycodone/ Acetaminophen (Percocet (5/ 325)) 1 tab Q4H PRN PO PAIN LEVEL 4-6 09/07/16 23:00 09/07/16 23:07 DC Oxycodone/ Acetaminophen (Percocet (5/ 325)) 2 tab Q4H PRN PO PAIN LEVEL 7-10 09/07/16 23:00 09/07/16 23:07 DC Ibuprofen (Motrin) 600 mg Q6 PO 09/08/16 00:00 09/08/16 00:00 DC Simethicone (Mylicon) 160 mg Q8H PRN PO DISTENSION/GAS/BLOATING 09/07/16 23:00 09/07/16 23:07 DC Senna/Docusate Sodium (Senokot-S) 1 tab BID PO 09/08/16 09:00 09/08/16 09:00 DC Lanolin (Giv-[id number]-Tqfjvl) 1 applic BEDSIDE MEDICATION PRN TOP BEDSIDE FOR ROSA ELENA TO NIPPLES 09/07/16 23:00 Diphtheria/ Tetanus/Acell Pertussis 0.5 ml 0.5 ml ONCE ONCE IM* 09/10/16 09:00 8/5/17 09:01 Oxytocin/Lactated Ringer's 500 ml @ 0 mls/hr ONCE PRN IV For Hemorrhage Management 09/07/16 23:00 Methylergonovine Maleate (Methergine) 0.2 mg ONCE PRN IM VAGINAL BLEEDING 09/07/16 23:00 Carboprost Tromethamine (Hemabate) 250 mcg ONCE PRN IM VAGINAL BLEEDING 09/07/16 23:00 Misoprostol 1000 mcg 1,000 mcg ONCE PRN [place] VAGINAL BLEEDING 09/07/16 23:00 Cefazolin Sodium 50 ml @ 100 mls/hr ONCE IVPB 09/07/16 23:00 09/07/16 23:29 DC 09/07/16 23:56 Oxytocin/Lactated Ringer's 500 ml @ 125 mls/hr Q4H IV 09/07/16 22:50 09/08/16 08:42 Lactated Ringer's 1,000 ml @ 125 mls/hr Q8H IV 09/07/16 22:50 Oxytocin/Lactated Ringer's 500 ml @ 0 mls/hr ONCE PRN IV For Hemorrhage Management 09/07/16 23:00 09/07/16 23:07 DC Methylergonovine Maleate (Methergine) 0.2 mg ONCE PRN IM VAGINAL BLEEDING 09/07/16 23:00 09/07/16 23:07 DC Carboprost Tromethamine (Hemabate) 250 mcg ONCE PRN IM VAGINAL BLEEDING 09/07/16 23:00 09/07/16 23:07 DC Misoprostol 1000 mcg 1,000 mcg ONCE PRN [place] VAGINAL BLEEDING 09/07/16 23:00 09/07/16 23:07 DC Cefazolin Sodium 50 ml @ 100 mls/hr ONCE IVPB 09/07/16 23:00 09/07/16 23:11 DC Oxytocin/Lactated Ringer's 500 ml @ 125 mls/hr Q4H IV 09/07/16 22:50 09/07/16 23:07 DC Acetaminophen/ Codeine Phosphate (Tylenol No.3) 1 tab Q4H PRN PO PAIN LEVEL 4-6 09/07/16 23:00 09/07/16 23:12 DC Acetaminophen/ Codeine Phosphate (Tylenol No.3) 2 tab Q4H PRN PO PAIN LEVEL 7-10 09/07/16 23:00 09/07/16 23:12 DC Oxycodone/ Acetaminophen (Percocet (5/ 325)) 1 tab Q4H PRN PO PAIN LEVEL 4-6 09/07/16 23:00 09/07/16 23:12 DC Oxycodone/ Acetaminophen (Percocet (5/ 325)) 2 tab Q4H PRN PO PAIN LEVEL 7-10 09/07/16 23:00 09/07/16 23:13 DC Ibuprofen (Motrin) 600 mg Q6 PO 09/08/16 18:00 Simethicone (Mylicon) 160 mg Q8H PRN PO DISTENSION/GAS/BLOATING 09/07/16 23:00 Senna/Docusate Sodium (Senokot-S) 1 tab BID PO 09/08/16 09:00 09/08/16 08:45 Lanolin (Btl-S-Okcttj) 1 applic BEDSIDE MEDICATION PRN TOP BEDSIDE FOR ROSA ELENA TO NIPPLES 09/07/16 23:00 09/07/16 23:07 DC Diphtheria/ Tetanus/Acell Pertussis 0.5 ml 0.5 ml ONCE ONCE IM* 09/10/16 09:00 09/10/16 09:00 DC Oxytocin/Lactated Ringer's 500 ml @ 0 mls/hr ONCE PRN IV For Hemorrhage Management 09/07/16 23:00 09/07/16 23:07 DC Methylergonovine Maleate (Methergine) 0.2 mg ONCE PRN IM VAGINAL BLEEDING 09/07/16 23:00 09/07/16 23:07 DC Carboprost Tromethamine (Hemabate) 250 mcg ONCE PRN IM VAGINAL BLEEDING 09/07/16 23:00 09/07/16 23:07 DC Misoprostol 1000 mcg 1,000 mcg ONCE PRN [place] VAGINAL BLEEDING 09/07/16 23:00 09/07/16 23:07 DC Cefazolin Sodium 50 ml @ 100 mls/hr ONCE IVPB 09/07/16 23:00 09/07/16 23:11 DC Oxytocin/Lactated Ringer's 500 ml @ 125 mls/hr Q4H IV 09/07/16 22:50 09/07/16 23:07 DC Acetaminophen/ Codeine Phosphate (Tylenol No.3) 1 tab Q4H PRN PO PAIN LEVEL 4-6 09/08/16 16:43 Acetaminophen/ Codeine Phosphate (Tylenol No.3) 2 tab Q4H PRN PO PAIN LEVEL 7-10 09/08/16 16:43 Oxycodone/ Acetaminophen (Percocet (5/ 325)) 1 tab Q4H PRN PO PAIN LEVEL 4-6 09/08/16 16:43 Oxycodone/ Acetaminophen (Percocet (5/ 325)) 2 tab Q4H PRN PO PAIN LEVEL 7-10 09/08/16 16:43 Post day 1 Afebrile Vital signs are stable, blood pressure running in 110 120s over 70s patient is known as chronic hypertension on [place] 250 twice daily advised hold medication if the blood pressure is less than 130/80 IRISH GOODSON MD Sep 08, 2016 10:34
[2016-09-08 12:00] VITALS: BP 98/64; PULSE 69; RESP 16
[2016-09-08] MEDS: LACTATED RINGER'S 1,000 ML IV SCH ×2 (14:50→15:52)
[2016-09-08 16:00] VITALS: BP 97/60; PULSE 85; RESP 18
[2016-09-08] MEDS ORDERED: OXYCODONE/ACETAMINOPHEN (5/325) TAB PO PRN ×2 (16:43)
[2016-09-08] MEDS ORDERED: ACETAMINOPHEN/CODEINE #3 TAB PO PRN ×2 (16:43)
[2016-09-08] MEDS: IBUPROFEN 600 MG TAB PO SCH (17:31)
[2016-09-08 20:00] VITALS: BP 100/53; PULSE 77; RESP 20
[2016-09-09] MEDS: IBUPROFEN 600 MG TAB PO SCH ×5 (00:34→23:56)
[2016-09-09 04:00] VITALS: BP 97/54; PULSE 72; RESP 18
[2016-09-09 08:00] VITALS: BP 105/71; PULSE 86; RESP 18
[2016-09-09] MEDS: SENNA/DOCUSATE NA (8.6MG/50MG) TAB PO SCH ×2 (09:00→20:50)
--- NOTE | 2016-09-09 14:46 | PN ---
Date/Time of Note Date/Time of Note DATE: 09/09/16 TIME: 14:45 OB Subjective Subjective Subjective Post day 2 Afebrile Vital signs are stable Abdomen soft Incision dry Good bowel sounds Patient had normal bowel movement Extremity normal Plan of tomorrow discharge discussed with the patient IRISH GOODSON MD Sep 09, 2016 14:46
[2016-09-09 16:00] VITALS: BP 118/69; PULSE 80; RESP 18
[2016-09-09 20:30] VITALS: BP 105/58; PULSE 93; RESP 18
[2016-09-10] VITALS: BP 96/57; PULSE 83; RESP 17
[2016-09-10 04:00] VITALS: BP 98/49; PULSE 63; RESP 18
[2016-09-10] MEDS: IBUPROFEN 600 MG TAB PO SCH ×2 (05:46→12:16)
[2016-09-10 08:35] VITALS: BP 106/59; PULSE 70; RESP 18
[2016-09-10] MEDS ORDERED: DIPHTH/TET/ACEL PERTUSS (ADULT) 0.5 ML VIAL IM* ONE ×2 (09:00)
[2016-09-10] MEDS: SENNA/DOCUSATE NA (8.6MG/50MG) TAB PO SCH (09:00)
--- NOTE | 2016-09-10 13:18 | DS ---
Date/Time of Note Date/Time of Note DATE: 09/10/16 TIME: 13:15 Obstetrical Discharge Record Final Diagnosis Final Diagnosis: Term delivered Section Section: Repeat Condition on Discharge Physical Assessment Last Vitals: Post C section day 3 Doing Well Afebrile Ambulatory Chest Clear Breasts are soft , Nipples are intact Abdomen is soft Fundus is firm Moderate amount of lochia Incision is clean ,No evidence of infection No calf tenderness No ankle edema New born is doing well, Breast feeding Voiding: Yes Bowel Movement: Yes Breast: Soft, non-tender Fundus: Firm Abdomen and Incision: Current Medications Medications (Trade) Dose Ordered Sig/Ron Route PRN Reason Start Time Stop Time Status Last Admin Dose Admin Lactated Ringer's 1,000 ml @ 125 mls/hr Q8H IV 09/07/16 15:21 09/07/16 22:58 DC 09/07/16 15:27 Cefazolin Sodium/ Dextrose 50 ml @ 100 mls/hr ONCE IV 09/07/16 15:30 09/07/16 22:58 DC Oxytocin/Lactated Ringer's 500 ml @ 125 mls/hr ONCE IV 09/07/16 15:30 09/07/16 22:59 DC 09/07/16 18:48 Oxytocin/Lactated Ringer's 500 ml @ 0 mls/hr ONCE PRN IV For Hemorrhage Management 09/07/16 15:30 09/07/16 22:59 DC Methylergonovine Maleate (Methergine) 0.2 mg ONCE PRN IM VAGINAL BLEEDING 09/07/16 15:30 09/07/16 23:00 DC Carboprost Tromethamine (Hemabate) 250 mcg ONCE PRN IM VAGINAL BLEEDING 09/07/16 15:30 09/07/16 23:00 DC Misoprostol 1000 mcg 1,000 mcg ONCE PRN [place] VAGINAL BLEEDING 09/07/16 15:30 09/07/16 23:00 DC Lactated Ringer's (Lr) 1,000 ml @ 1,000 mls/hr Q1H ONCE IV 09/07/16 15:32 09/07/16 16:31 DC 09/07/16 16:02 Citric Acid/ Sodium Citrate (Bicitra) 30 ml PRE-OP ONCE PO 09/07/16 16:00 09/07/16 16:01 DC 09/07/16 15:58 Famotidine (Pepcid Iv) 20 mg pre-procedure ONCE IV 09/07/16 16:00 09/07/16 16:01 DC 09/07/16 15:58 Metoclopramide HCl (Reglan) 10 mg ONCE ONCE IV 09/07/16 16:00 09/07/16 16:01 DC 09/07/16 15:58 Morphine Sulfate (Duramorph) 10 mg STK-MED ONCE .ROUTE 09/07/16 16:27 09/07/16 16:28 DC Fentanyl (Sublimaze) 100 mcg STK-MED ONCE .ROUTE 09/07/16 16:27 09/07/16 16:28 DC Phenylephrine HCl (Virgil-Synephrine Inj Syg) 500 mcg STK-MED ONCE .ROUTE 09/07/16 16:47 09/07/16 16:48 DC Ondansetron HCl (Zofran Inj) 4 mg STK-MED ONCE .ROUTE 09/07/16 16:58 09/07/16 16:59 DC Hydromorphone HCl (Dilaudid (Rec)) 0.4 mg PACU ORDER PRN IV PAIN 09/07/16 17:30 09/07/16 21:00 DC Fentanyl (Sublimaze) 25 mcg PACU ORDER PRN IV PAIN 09/07/16 17:30 09/07/16 21:00 DC Ketorolac Tromethamine (Toradol) 30 mg PACU ORDER PRN IV FOR PAIN AFTER IV NARCOTIC MED 09/07/16 17:30 09/07/16 21:00 DC Ondansetron HCl (Zofran Inj) 4 mg PACU ORDER PRN IV NAUSEA AND/OR VOMITING 09/07/16 17:30 09/07/16 21:00 DC Prochlorperazine (Compazine Inj) 5 mg PACU ORDER PRN IV NAUSEA AND/OR VOMITING 09/07/16 17:30 09/07/16 21:00 DC Meperidine HCl (Demerol) 25 mg PACU ORDER PRN IV POST-OP RIGORS 09/07/16 17:30 09/07/16 21:00 DC Diphenhydramine HCl 25 mg 25 mg PACU ORDER PRN IV PRURITUS 09/07/16 17:30 09/07/16 21:00 DC 09/07/16 18:32 Oxytocin/Lactated Ringer's 500 ml @ ud STK-MED ONCE IV 09/07/16 17:30 09/07/16 17:31 DC Naloxone HCl (Narcan) 0.1 mg Q2M PRN IV FOR RESP RATE 8 OR LESS 09/07/16 20:30 09/08/16 16:43 DC Ketorolac Tromethamine (Toradol) 30 mg Q6H PRN IV PAIN 09/07/16 20:30 09/08/16 16:43 DC Hydromorphone HCl (Dilaudid) 0.2 mg Q3H PRN IV PAIN LEVEL 1-5 09/07/16 20:30 09/08/16 16:43 DC Hydromorphone HCl (Dilaudid) 0.4 mg Q3H PRN IV PAIN LEVEL 6-10 09/07/16 20:30 09/08/16 16:43 DC Diphenhydramine HCl (Benadryl) 25 mg Q6H PRN IV ITCHING 09/07/16 20:30 09/08/16 16:43 DC 09/08/16 00:47 Ondansetron HCl (Zofran Inj) 4 mg Q6H PRN IV NAUSEA AND/OR VOMITING 09/07/16 20:30 09/08/16 16:43 DC 09/08/16 00:48 Zolpidem Tartrate (Ambien) 5 mg HS MAY REPEAT X 1 PRN PO INSOMNIA 09/07/16 20:30 09/08/16 16:43 DC Miscellaneous Information (* Miscellaneous Pharmacy Order) Duramorph: 0.2 mg Spi... GIVEN XX 09/07/16 20:30 09/08/16 16:43 DC Acetaminophen/ Codeine Phosphate (Tylenol No.3) 1 tab Q4H PRN PO PAIN LEVEL 4-6 09/07/16 23:00 09/07/16 23:07 DC Acetaminophen/ Codeine Phosphate (Tylenol No.3) 2 tab Q4H PRN PO PAIN LEVEL 7-10 09/07/16 23:00 09/07/16 23:07 DC Oxycodone/ Acetaminophen (Percocet (5/ 325)) 1 tab Q4H PRN PO PAIN LEVEL 4-6 09/07/16 23:00 09/07/16 23:07 DC Oxycodone/ Acetaminophen (Percocet (5/ 325)) 2 tab Q4H PRN PO PAIN LEVEL 7-10 09/07/16 23:00 09/07/16 23:07 DC Ibuprofen (Motrin) 600 mg Q6 PO 09/08/16 00:00 09/08/16 00:00 DC Simethicone (Mylicon) 160 mg Q8H PRN PO DISTENSION/GAS/BLOATING 09/07/16 23:00 09/07/16 23:07 DC Senna/Docusate Sodium (Senokot-S) 1 tab BID PO 09/08/16 09:00 09/08/16 09:00 DC Lanolin (Mge-I-Tqotrt) 1 applic BEDSIDE MEDICATION PRN TOP BEDSIDE FOR ROSA ELENA TO NIPPLES 09/07/16 23:00 09/09/16 20:50 Diphtheria/ Tetanus/Acell Pertussis 0.5 ml 0.5 ml ONCE ONCE IM* 09/10/16 09:00 09/10/16 09:01 DC Oxytocin/Lactated Ringer's 500 ml @ 0 mls/hr ONCE PRN IV For Hemorrhage Management 09/07/16 23:00 09/09/16 07:36 DC Methylergonovine Maleate (Methergine) 0.2 mg ONCE PRN IM VAGINAL BLEEDING 09/07/16 23:00 Carboprost Tromethamine (Hemabate) 250 mcg ONCE PRN IM VAGINAL BLEEDING 09/07/16 23:00 Misoprostol 1000 mcg 1,000 mcg ONCE PRN [place] VAGINAL BLEEDING 09/07/16 23:00 Cefazolin Sodium 50 ml @ 100 mls/hr ONCE IVPB 09/07/16 23:00 09/07/16 23:29 DC 09/07/16 23:56 Oxytocin/Lactated Ringer's 500 ml @ 125 mls/hr Q4H IV 09/07/16 22:50 09/09/16 07:36 DC 09/08/16 08:42 Lactated Ringer's 1,000 ml @ 125 mls/hr Q8H IV 09/07/16 22:50 09/09/16 07:37 DC 09/08/16 15:52 Oxytocin/Lactated Ringer's 500 ml @ 0 mls/hr ONCE PRN IV For Hemorrhage Management 09/07/16 23:00 09/07/16 23:07 DC Methylergonovine Maleate (Methergine) 0.2 mg ONCE PRN IM VAGINAL BLEEDING 09/07/16 23:00 09/07/16 23:07 DC Carboprost Tromethamine (Hemabate) 250 mcg ONCE PRN IM VAGINAL BLEEDING 09/07/16 23:00 09/07/16 23:07 DC Misoprostol 1000 mcg 1,000 mcg ONCE PRN [place] VAGINAL BLEEDING 09/07/16 23:00 09/07/16 23:07 DC Cefazolin Sodium 50 ml @ 100 mls/hr ONCE IVPB 09/07/16 23:00 09/07/16 23:11 DC Oxytocin/Lactated Ringer's 500 ml @ 125 mls/hr Q4H IV 09/07/16 22:50 09/07/16 23:07 DC Acetaminophen/ Codeine Phosphate (Tylenol No.3) 1 tab Q4H PRN PO PAIN LEVEL 4-6 09/07/16 23:00 09/07/16 23:12 DC Acetaminophen/ Codeine Phosphate (Tylenol No.3) 2 tab Q4H PRN PO PAIN LEVEL 7-10 09/07/16 23:00 09/07/16 23:12 DC Oxycodone/ Acetaminophen (Percocet (5/ 325)) 1 tab Q4H PRN PO PAIN LEVEL 4-6 09/07/16 23:00 09/07/16 23:12 DC Oxycodone/ Acetaminophen (Percocet (5/ 325)) 2 tab Q4H PRN PO PAIN LEVEL 7-10 09/07/16 23:00 09/07/16 23:13 DC Ibuprofen (Motrin) 600 mg Q6 PO 09/08/16 18:00 09/10/16 12:16 Simethicone (Mylicon) 160 mg Q8H PRN PO DISTENSION/GAS/BLOATING 09/07/16 23:00 Senna/Docusate Sodium (Senokot-S) 1 tab BID PO 09/08/16 09:00 09/09/16 20:50 Lanolin (Phg-W-Pwikoc) 1 applic BEDSIDE MEDICATION PRN TOP BEDSIDE FOR ROSA ELENA TO NIPPLES 09/07/16 23:00 09/07/16 23:07 DC Diphtheria/ Tetanus/Acell Pertussis 0.5 ml 0.5 ml ONCE ONCE IM* 09/10/16 09:00 09/10/16 09:00 DC Oxytocin/Lactated Ringer's 500 ml @ 0 mls/hr ONCE PRN IV For Hemorrhage Management 09/07/16 23:00 09/07/16 23:07 DC Methylergonovine Maleate (Methergine) 0.2 mg ONCE PRN IM VAGINAL BLEEDING 09/07/16 23:00 09/07/16 23:07 DC Carboprost Tromethamine (Hemabate) 250 mcg ONCE PRN IM VAGINAL BLEEDING 09/07/16 23:00 09/07/16 23:07 DC Misoprostol 1000 mcg 1,000 mcg ONCE PRN [place] VAGINAL BLEEDING 09/07/16 23:00 09/07/16 23:07 DC Cefazolin Sodium 50 ml @ 100 mls/hr ONCE IVPB 09/07/16 23:00 09/07/16 23:11 DC Oxytocin/Lactated Ringer's 500 ml @ 125 mls/hr Q4H IV 09/07/16 22:50 09/07/16 23:07 DC Acetaminophen/ Codeine Phosphate (Tylenol No.3) 1 tab Q4H PRN PO PAIN LEVEL 4-6 09/08/16 16:43 Acetaminophen/ Codeine Phosphate (Tylenol No.3) 2 tab Q4H PRN PO PAIN LEVEL 7-10 09/08/16 16:43 09/09/16 20:50 Oxycodone/ Acetaminophen (Percocet (5/ 325)) 1 tab Q4H PRN PO PAIN LEVEL 4-6 09/08/16 16:43 Oxycodone/ Acetaminophen (Percocet (5/ 325)) 2 tab Q4H PRN PO PAIN LEVEL 7-10 09/08/16 16:43 Calf Tenderness: No Patient Condition: Good SHARYN HURT MD Sep 10, 2016 13:18
== END 2016-09-10 17:31 | disposition home or self-care (01) | DRG 765 ==
LOC: L-D 11:56 → OBT 11:56 → L-D 15:07 → PP1 21:15
PROVIDERS: ADMIT Obstetrics & Gynecology; ATTEND Obstetrics & Gynecology
PROC: 10D00Z1 Extraction of Products of Conception, Low, Open Approach (ICD-10-PCS; principal; 2016-09-07 16:00)
DX: O26.62 Liver and biliary tract disorders in childbirth (principal); K83.1 Obstruction of bile duct; O41.03X0 Oligohydramnios, third trimester, not applicable or unspecified; Z3A.36 36 weeks gestation of pregnancy; Z37.0 Single live birth
CPT/HCPCS: 76818; 80307; 85025; 85610; 85730; 86592; 86850; 86900; 86901; 87340; 90715; 94760; 99464; G0463; J0690; J1200; J2274; J2370; J2405; J2590; J2765; J3010; J7120